=== PATIENT | male | born 1985 | race African-American/Black ===

== ENCOUNTER 2023-01-24 11:58 | Inpatient (IN) ==
[~2023-01-24 11:58] MED LIST: KETAMINE HCL INJ 100 MG/ML 5ML VIAL IV ONE; RAPID SEQUENCE INDUCTION BAG ONE; ROCURONIUM BROMIDE 10 MG/ML 5 ML VIAL IV ONE
[2023-01-24] MEDS ORDERED: STAT IV Infusion **Titration per Protocol STA (12:01)
[2023-01-24] MEDS ORDERED: PROPOFOL IV EMULSION 10 MG/ML 100 ML VIAL IV ONE (12:07)
[2023-01-24] MEDS ORDERED: SODIUM CHLORIDE 0.9% 1,000 ML IV SCH (12:15)
--- NOTE | 2023-01-24 12:16 | Emergency Department Note ---
Impression & Plan Hanging, Anoxic brain injury, Suicide attempt, Respiratory arrest, Cardiac arrest ED Provider Note NAME: DIAMANTE [id number] SIXTO AGE: 37 SEX: M : 1985 ARRIVES VIA: Ambulance INFORMANT: EMS personnel and the truck guard ED PROVIDER(S): Stephon Vincent DO CHIEF COMPLAINT: Attempted suicide HPI: The patient is a 37-year-old male who presented to the emergency department [facility]. The patient was last seen well at approximately 1040 this AM. At approximately 1044 this a.m. he was found hanging in his cell. Protocol was undertaken and the patient was first pepper sprayed. He was then evaluated by the staff. He was felt to have no pulse. The patient did receive CPR. 911 was called. The patient was evaluated by the prehospital personnel. They did get a pulse back on the patient. I did receive a prehospital notification about the patient. The patient was placed into a rigid cervical collar. The patient was posturing at 1 point. Initial pulse rate was bradycardic with hypotension. ROS: See above HPI for pertinent positives & negatives. A total of 10 systems reviewed and were otherwise negative. PAST MEDICAL HISTORY: See Below PAST SURGICAL HISTORY: See Below FAMILY HISTORY: See Below SOCIAL HISTORY: See Below HOME MEDICATIONS: See Below ALLERGIES: See Below VITALS: See Below PHYSICAL EXAMINATION: GENERAL: The patient is not awake and does not follow commands. He is moving his extremities and trying to pull at his IV lines. EYES: Eyes were closed. Evaluation of the eyes revealed a roving gaze [id number] with dilated pupils bilaterally. EARS, NOSE, MOUTH AND THROAT: The nose is without any evidence of any deformity. Oral airway was in place. There was a laceration on the inner lower lip. No active bleeding was noted. NECK: Rigid cervical collar was applied prior to arrival. There is no crepitus or stridor. RESPIRATORY: Diminished breath sounds are noted throughout. CARDIOVASCULAR: Regular rate and rhythm noted there no murmurs rubs or gallops normal S1 normal S2. GASTROINTESTINAL: The abdomen is soft. Abdomen is nontender. MUSCULOSKELETAL/EXTREMITIES: There is no evidence of gross deformity full range of motion is noted in the hips and shoulders. SKIN: Skin is diaphoretic and warm. No pedal edema was noted NEUROLOGIC: GCS of 7 MEDICAL DECISION MAKING: The patient is a 37-year-old male who [facility] a [facility] injury. The patient was obtunded upon arrival and had a GCS of 7. The patient was intubated immediately for airway protection. Cervical spine precautions were observed during the intubation. The patient was not awake or alert. He was not able to answer questions. He was further resuscitated in the emergency department using IV fluids. I discussed the patient's condition with the on-call [facility] hospitalist. I also discussed this case with the ICU physician. The patient will require further inpatient management to determine the degree of the injury. The patient was trying to pull at lines and tubes when he was reevaluated in the emergency department. He was given IV fluids. Triage Nursing notes reviewed. Prior medical records reviewed Vital Signs: reviewed and remarkable for no significant abnormalities Differential diagnosis: Fracture, dislocation, contusion, intra-abdominal, pneumothorax, intrathoracic, intracranial, neurologic, compartment syndrome, rhabdomyolysis, as well as other pathologies. ER treatment provided: See below Diagnostics interpreted by me: ECG: EKG was obtained in the emergency department. My interpretation is normal sinus rhythm at 79 bpm. There is no ectopy. There was no acute ST segment abnormalities noted. No previous tracing was available Cardiac Monitoring: An order was placed for continuous cardiac monitoring. The monitor shows a rate of 92 bpm with sinus rhythm. Laboratory studies: As stated above and show below. Imaging studies: See below. Radiographic imaging was reviewed by myself Consultation(s): I discussed this case with Dr Gregory who was amusement or recreation card checker for the [place] hospitalist group. I discussed this case with Dr Epperson who was amusement or recreation card checker for the ICU ED COURSE: Procedures: Femoral Central Venous Catheter Indication:respiratory arrest Catheter Type: triple lumen Location: right femoral vein Verbal consent was obtained after the risks and benefits were explained, including but not limited to intra-abdominal injury, vessel injury, bleeding, scarring, infection, pain, and bone/joint/nerve damage. At this time, the risks of the procedure are less than the risks of NOT performing the procedure. A time out was taken and the correct patient and site identified. The patient was placed in the supine position and the skin was prepped in the standard fashion with chlorhexidine and full sterile drapes applied. The proper landmarks were identified with ultrasound, anesthetized with 1% lidocaine without epinephrine, and the needle was inserted through the skin in the standard fashion. The needle was carefully advanced into blood vessel lumen with ultrasound guidance. The guidewire was placed uneventfully. The vessel is dilated and the catheter was placed. It was sutured into position. There was good blood return from all ports. The patient tolerated the procedure well and there were no complications. Critical Care: I have personally spent greater than 45 minutes of critical care time in the direct management of this patient. This includes bedside care, interpretation of diagnostic studies, and testing, discussion with consultants, patient, and family members, and other required patient management activities. This 45 minutes is in excess of all separately billable procedures. Past Med/Surg History Medical History (Updated 01/24/23 @ 17:20 by Stephon Vincent DO) Suicide attempt Nightmare disorder Depression Social History Smoking Status: Unknown if ever smoked Preferred Language: Czech Communication Ability: Unable Current Living Situation: Other Current Living Situation Comment: [facility] Allergies Allergies Allergy/AdvReac Type Severity Reaction Status Date / Time OC SPRAY CONTRINDICATION AdvReac Unknown Uncoded 01/24/23 14:21 Home Meds Home Medications Medication Instructions Recorded Confirmed Saul Peroxide 5% Lotion 1 applic topical DAILY 01/24/23 01/24/23 coal tar 2 % shampoo (Tarsum 1 applic topical DAILY 01/24/23 01/24/23 Professional) diphenhydramine HCl 50 mg capsule 100 mg PO HS 01/24/23 01/24/23 mirtazapine 45 mg tablet 45 mg PO HS 01/24/23 01/24/23 prazosin 1 mg capsule 3 mg PO HS 01/24/23 01/24/23 sertraline 100 mg tablet 100 mg PO HS 01/24/23 01/24/23 Results & Data (ED) Vital Signs Vital Signs - 24 hr 01/24/23 12:07 01/24/23 12:10 01/24/23 12:15 Temperature Temperature Source Pulse Rate 88 101 H Pulse Rate from SpO2 Sensor 82 100 H Respiratory Rate 12 13 Respiratory Effort / Characteristics Blood Pressure Blood Pressure Mean Pulse Oximetry 96 100 Oxygen Delivery Method Fraction of Inspired Oxygen Sepsis Recent Fever Within 48 Hours Sepsis New/Unexplained Change in Mental Status Sepsis Action Taken by Nursing End-Tidal CO2 42 50 01/24/23 12:19 01/24/23 12:20 01/24/23 12:24 Temperature Temperature Source Pulse Rate 76 78 79 Pulse Rate from SpO2 Sensor 79 79 Respiratory Rate 12 12 Respiratory Effort / Characteristics Mechanically Ventilated Blood Pressure 140/70 Blood Pressure Mean 93 Pulse Oximetry 100 100 100 Oxygen Delivery Method Mechanical Vent Fraction of Inspired Oxygen Sepsis Recent Fever Within 48 Hours No Sepsis New/Unexplained Change in Mental Status No Sepsis Action Taken by Nursing No Action Required End-Tidal CO2 45 44 01/24/23 12:32 01/24/23 12:48 01/24/23 12:49 Temperature Temperature Source Pulse Rate 96 H 73 Pulse Rate from SpO2 Sensor 72 Respiratory Rate 11 L Respiratory Effort / Characteristics Blood Pressure 118/65 Blood Pressure Mean 87 Pulse Oximetry 92 Oxygen Delivery Method Fraction of Inspired Oxygen Sepsis Recent Fever Within 48 Hours Sepsis New/Unexplained Change in Mental Status Sepsis Action Taken by Nursing End-Tidal CO2 42 01/24/23 12:50 01/24/23 12:50 01/24/23 12:54 Temperature Temperature Source Pulse Rate 76 79 Pulse Rate from SpO2 Sensor 76 Respiratory Rate 13 12 Respiratory Effort / Characteristics Blood Pressure 130/73 Blood Pressure Mean 85 Pulse Oximetry 94 93 Oxygen Delivery Method Fraction of Inspired Oxygen 100 Sepsis Recent Fever Within 48 Hours Sepsis New/Unexplained Change in Mental Status Sepsis Action Taken by Nursing End-Tidal CO2 42 43 01/24/23 12:55 01/24/23 13:00 01/24/23 13:00 Temperature Temperature Source Pulse Rate 71 Pulse Rate from SpO2 Sensor 70 Respiratory Rate 14 Respiratory Effort / Characteristics Blood Pressure 104/70 Blood Pressure Mean 77 Pulse Oximetry 94 96 Oxygen Delivery Method Mechanical Vent Fraction of Inspired Oxygen Sepsis Recent Fever Within 48 Hours Sepsis New/Unexplained Change in Mental Status Sepsis Action Taken by Nursing End-Tidal CO2 39 01/24/23 13:00 01/24/23 13:02 01/24/23 13:02 Temperature Temperature Source Pulse Rate 67 79 Pulse Rate from SpO2 Sensor 65 78 Respiratory Rate 10 L 17 Respiratory Effort / Characteristics Blood Pressure 106/73 Blood Pressure Mean 82 Pulse Oximetry 96 97 Oxygen Delivery Method Fraction of Inspired Oxygen Sepsis Recent Fever Within 48 Hours Sepsis New/Unexplained Change in Mental Status Sepsis Action Taken by Nursing End-Tidal CO2 41 41 01/24/23 13:05 01/24/23 13:05 01/24/23 13:10 Temperature Temperature Source Pulse Rate 74 78 Pulse Rate from SpO2 Sensor 73 77 Respiratory Rate 12 16 Respiratory Effort / Characteristics Blood Pressure 96/59 L Blood Pressure Mean 72 Pulse Oximetry 96 97 Oxygen Delivery Method Fraction of Inspired Oxygen Sepsis Recent Fever Within 48 Hours Sepsis New/Unexplained Change in Mental Status Sepsis Action Taken by Nursing End-Tidal CO2 41 38 01/24/23 13:10 01/24/23 13:11 01/24/23 13:15 Temperature 36.7 C Temperature Source Davis Cath ( Temp Sensing) Pulse Rate 84 Pulse Rate from SpO2 Sensor 82 Respiratory Rate 12 Respiratory Effort / Characteristics Blood Pressure 93/58 L Blood Pressure Mean 68 Pulse Oximetry 97 Oxygen Delivery Method Fraction of Inspired Oxygen Sepsis Recent Fever Within 48 Hours Sepsis New/Unexplained Change in Mental Status Sepsis Action Taken by Nursing End-Tidal CO2 40 01/24/23 13:19 01/24/23 13:19 01/24/23 13:20 Temperature Temperature Source Pulse Rate 80 73 Pulse Rate from SpO2 Sensor 77 71 Respiratory Rate 13 16 Respiratory Effort / Characteristics Blood Pressure 96/38 L Blood Pressure Mean 67 Pulse Oximetry 99 98 Oxygen Delivery Method Fraction of Inspired Oxygen Sepsis Recent Fever Within 48 Hours Sepsis New/Unexplained Change in Mental Status Sepsis Action Taken by Nursing End-Tidal CO2 40 40 01/24/23 13:25 01/24/23 13:25 01/24/23 13:30 Temperature Temperature Source Pulse Rate 88 58 L Pulse Rate from SpO2 Sensor 88 59 L Respiratory Rate 13 15 Respiratory Effort / Characteristics Blood Pressure 96/63 L Blood Pressure Mean 67 Pulse Oximetry 98 98 Oxygen Delivery Method Fraction of Inspired Oxygen Sepsis Recent Fever Within 48 Hours Sepsis New/Unexplained Change in Mental Status Sepsis Action Taken by Nursing End-Tidal CO2 50 40 01/24/23 13:30 01/24/23 13:35 01/24/23 13:35 Temperature Temperature Source Pulse Rate 63 Pulse Rate from SpO2 Sensor 63 Respiratory Rate 12 Respiratory Effort / Characteristics Blood Pressure 96/41 L 110/49 L Blood Pressure Mean 67 63 Pulse Oximetry 100 Oxygen Delivery Method Fraction of Inspired Oxygen Sepsis Recent Fever Within 48 Hours Sepsis New/Unexplained Change in Mental Status Sepsis Action Taken by Nursing End-Tidal CO2 41 01/24/23 13:40 01/24/23 13:45 01/24/23 13:50 Temperature Temperature Source Pulse Rate 70 49 L Pulse Rate from SpO2 Sensor 60 50 L Respiratory Rate 14 14 15 Respiratory Effort / Characteristics Blood Pressure 88/49 L 103/49 L Blood Pressure Mean 62 67 Pulse Oximetry 99 98 99 Oxygen Delivery Method Fraction of Inspired Oxygen Sepsis Recent Fever Within 48 Hours Sepsis New/Unexplained Change in Mental Status Sepsis Action Taken by Nursing End-Tidal CO2 40 39 39 01/24/23 13:50 01/24/23 13:55 01/24/23 13:55 Temperature Temperature Source Pulse Rate 49 L Pulse Rate from SpO2 Sensor 50 L Respiratory Rate 13 Respiratory Effort / Characteristics Blood Pressure 108/53 L 104/49 L Blood Pressure Mean 75 65 Pulse Oximetry 100 Oxygen Delivery Method Fraction of Inspired Oxygen Sepsis Recent Fever Within 48 Hours Sepsis New/Unexplained Change in Mental Status Sepsis Action Taken by Nursing End-Tidal CO2 39 01/24/23 14:00 01/24/23 14:00 01/24/23 14:05 Temperature Temperature Source Pulse Rate 47 L 45 L Pulse Rate from SpO2 Sensor 48 L 48 L Respiratory Rate 13 13 Respiratory Effort / Characteristics Blood Pressure 108/49 L Blood Pressure Mean 61 Pulse Oximetry 100 100 Oxygen Delivery Method Fraction of Inspired Oxygen Sepsis Recent Fever Within 48 Hours Sepsis New/Unexplained Change in Mental Status Sepsis Action Taken by Nursing End-Tidal CO2 38 38 01/24/23 14:05 01/24/23 14:10 01/24/23 14:15 Temperature Temperature Source Pulse Rate 47 L 47 L Pulse Rate from SpO2 Sensor 49 L 48 L Respiratory Rate 13 13 Respiratory Effort / Characteristics Blood Pressure 104/50 L 106/49 L 106/51 L Blood Pressure Mean 64 68 69 Pulse Oximetry 100 100 Oxygen Delivery Method Fraction of Inspired Oxygen Sepsis Recent Fever Within 48 Hours Sepsis New/Unexplained Change in Mental Status Sepsis Action Taken by Nursing End-Tidal CO2 38 39 01/24/23 14:20 01/24/23 14:20 01/24/23 14:25 Temperature Temperature Source Pulse Rate 83 Pulse Rate from SpO2 Sensor 84 Respiratory Rate 20 Respiratory Effort / Characteristics Blood Pressure 121/67 122/66 Blood Pressure Mean 100 93 Pulse Oximetry 100 Oxygen Delivery Method Fraction of Inspired Oxygen Sepsis Recent Fever Within 48 Hours Sepsis New/Unexplained Change in Mental Status Sepsis Action Taken by Nursing End-Tidal CO2 47 01/24/23 14:25 01/24/23 14:30 01/24/23 14:30 Temperature Temperature Source Pulse Rate 86 77 Pulse Rate from SpO2 Sensor 86 77 Respiratory Rate 15 17 Respiratory Effort / Characteristics Blood Pressure 123/70 Blood Pressure Mean 79 Pulse Oximetry 100 100 Oxygen Delivery Method Fraction of Inspired Oxygen Sepsis Recent Fever Within 48 Hours Sepsis New/Unexplained Change in Mental Status Sepsis Action Taken by Nursing End-Tidal CO2 41 39 01/24/23 14:35 01/24/23 14:35 01/24/23 14:40 Temperature Temperature Source Pulse Rate 79 75 Pulse Rate from SpO2 Sensor 80 75 Respiratory Rate 14 19 Respiratory Effort / Characteristics Blood Pressure 120/74 Blood Pressure Mean 90 Pulse Oximetry 100 100 Oxygen Delivery Method Fraction of Inspired Oxygen Sepsis Recent Fever Within 48 Hours Sepsis New/Unexplained Change in Mental Status Sepsis Action Taken by Nursing End-Tidal CO2 39 39 01/24/23 14:40 01/24/23 14:45 01/24/23 14:45 Temperature Temperature Source Pulse Rate 72 Pulse Rate from SpO2 Sensor 72 Respiratory Rate 17 Respiratory Effort / Characteristics Blood Pressure 119/65 117/66 Blood Pressure Mean 81 85 Pulse Oximetry 100 Oxygen Delivery Method Fraction of Inspired Oxygen Sepsis Recent Fever Within 48 Hours Sepsis New/Unexplained Change in Mental Status Sepsis Action Taken by Nursing End-Tidal CO2 38 01/24/23 14:50 01/24/23 14:50 Temperature Temperature Source Pulse Rate 70 Pulse Rate from SpO2 Sensor 71 Respiratory Rate 14 Respiratory Effort / Characteristics Blood Pressure 121/66 Blood Pressure Mean 83 Pulse Oximetry 100 Oxygen Delivery Method Fraction of Inspired Oxygen Sepsis Recent Fever Within 48 Hours Sepsis New/Unexplained Change in Mental Status Sepsis Action Taken by Nursing End-Tidal CO2 37 Home Medications Current Medication List: was personally reviewed by me Laboratory Data Attestation: I reviewed the patient's lab results. 01/24/23 12:09 01/24/23 12:09 Lab Results 01/24/23 01/24/23 01/24/23 Range/Units 12:09 12:13 12:57 WBC 5.19 (4.8-10.8) K/ul RBC 4.48 L (4.70-6.10) M/uL Hgb 13.4 L (14.0-18.0) g/dl POC Hgb 14.3 (14.0-18.0) g/dl Hct 40.8 L (42.0-52.0) % POC Hct 42 (42-52) % MCV 91.1 (80.0-100.0) fL MCH 29.9 (25.0-34.0) pg MCHC 32.8 (32.0-36.0) g/dL RDW Std Deviation 36.5 (36.4-46.3) fL RDW Coeff of Meliza 10.9 L (11.5-14.5) % Plt Count 270 (130-400) K/uL MPV 9.8 (9.4-12.4) fL Immature Gran % (Auto) 0.4 % Neut % (Auto) 65.9 % Lymph % (Auto) 25.6 % Haakon % (Auto) 7.1 % Eos % (Auto) 0.8 % Baso % (Auto) 0.2 % Neut # (Auto) 3.42 (1.40-6.50) K/uL Lymph # (Auto) 1.33 (1.20-3.40) K/uL Haakon # (Auto) 0.37 (0.11-0.59) K/uL Eos # (Auto) 0.04 (0.00-0.50) K/uL Baso # (Auto) 0.01 (0.00-0.20) K/uL Immature Gran # (Auto) 0.02 (0.01-0.20) K/uL PT 11.9 (9.0-12.0) Seconds INR 1.1 (0.9-1.1) APTT 21.3 (21.0-31.0) Seconds PTT Ratio 0.8 POC Sodium 142 (135-144) mmol/L Sodium 140 (136-145) mmol/L POC Potassium 4.5 (3.3-5.0) mmol/L Potassium 4.4 (3.5-5.1) mmol/L POC Chloride 104 (101-112) mmol/L Chloride 104 (98-107) mmol/L Carbon Dioxide 23 (21-32) mmol/L POC Total CO2 21 L (24-31) mmol/L Anion Gap 13 H (3-11) POC Anion Gap 23.0 (16-25) mmol/L POC BUN 17 (7-18) mg/dl BUN 18 (6-23) mg/dl Creatinine 1.27 (0.6-1.4) mg/dl POC Creatinine 1.2 (0.6-1.3) mg/dl Est Cr Clr Drug Dosing 103.0 ml/min Est GFR ( Amer) 83.1 ml/min Est GFR (Non-Af Amer) 71.7 ml/min BUN/Creatinine Ratio 14.2 (10-20) Glucose 115 H (70-99(Fasting)) mg/dl POC Glucose (other) 120 H (70-99) mg/dl Calcium 9.5 (8.6-10.3) mg/dl POC Ioniz Calcium Patti 1.18 (1.12-1.32) mmol/l Total Bilirubin 0.7 (0.2-1.0) mg/dl AST 25 (13-39) U/L ALT 22 (7-52) U/L Alkaline Phosphatase 59 (34-104) U/L Total Creatine Kinase 151 (30-223) U/L Troponin I High Sens 66.8 H* (0-20) pg/ml Total Protein 8.0 (6.0-8.3) gm/dl Albumin 4.7 (3.4-5.0) gm/dl Globulin 3.3 (2.5-4.0) gm/dl Albumin/Globulin Ratio 1.4 (0.9-2) Urine Color Dark Yellow Urine Appearance Clear (Clear) Urine pH 5.5 (4.5-7.5) Ur Specific [place] 1.024 (1.000-1.030) Urine Protein 2+ H (Negative) Urine Glucose (UA) Negative (Negative) Urine Ketones Negative (Negative) Urine Blood Negative (Negative) Urine Nitrite Negative (Negative) Urine Bilirubin Negative (Negative) Urine Urobilinogen Negative (Negative) Ur Leukocyte Esterase Negative (Negative) Urine WBC (Auto) 1-5 (0-5) /hpf Urine RBC (Auto) 0-4 (0-4) /hpf U Hyaline Cast (Auto) 10-30 H (0-5) /lpf U Epithel Cells (Auto) 10-20 H (0-5) /lpf Urine Bacteria (Auto) Negative (Negative) Urine Opiates Screen Neg (Neg) Ur Methadone, Qual Neg (Neg) Urine Barbiturates Neg (Neg) Ur Phencyclidine (PCP) Neg (Neg) U Amphetamin/Meth Scrn Neg (Neg) MDMA (Ecstasy) Screen Neg (Neg) U Benzodiazepines Scrn Neg (Neg) Ur Cocaine Metabolite Neg (Neg) U Marijuana (THC) Screen Neg (Neg) Ethyl Alcohol mg/dL < 10.0 (<10.0) mg/dl SARS-CoV-2, RNA, NAAT (NEGATIVE) 01/24/23 Range/Units 12:59 WBC (4.8-10.8) K/ul RBC (4.70-6.10) M/uL Hgb (14.0-18.0) g/dl POC Hgb (14.0-18.0) g/dl Hct (42.0-52.0) % POC Hct (42-52) % MCV (80.0-100.0) fL MCH (25.0-34.0) pg MCHC (32.0-36.0) g/dL RDW Std Deviation (36.4-46.3) fL RDW Coeff of Meliza (11.5-14.5) % Plt Count (130-400) K/uL MPV (9.4-12.4) fL Immature Gran % (Auto) % Neut % (Auto) % Lymph % (Auto) % Haakon % (Auto) % Eos % (Auto) % Baso % (Auto) % Neut # (Auto) (1.40-6.50) K/uL Lymph # (Auto) (1.20-3.40) K/uL Haakon # (Auto) (0.11-0.59) K/uL Eos # (Auto) (0.00-0.50) K/uL Baso # (Auto) (0.00-0.20) K/uL Immature Gran # (Auto) (0.01-0.20) K/uL PT (9.0-12.0) Seconds INR (0.9-1.1) APTT (21.0-31.0) Seconds PTT Ratio POC Sodium (135-144) mmol/L Sodium (136-145) mmol/L POC Potassium (3.3-5.0) mmol/L Potassium (3.5-5.1) mmol/L POC Chloride (101-112) mmol/L Chloride (98-107) mmol/L Carbon Dioxide (21-32) mmol/L POC Total CO2 (24-31) mmol/L Anion Gap (3-11) POC Anion Gap (16-25) mmol/L POC BUN (7-18) mg/dl BUN (6-23) mg/dl Creatinine (0.6-1.4) mg/dl POC Creatinine (0.6-1.3) mg/dl Est Cr Clr Drug Dosing ml/min Est GFR ( Amer) ml/min Est GFR (Non-Af Amer) ml/min BUN/Creatinine Ratio (10-20) Glucose (70-99(Fasting)) mg/dl POC Glucose (other) (70-99) mg/dl Calcium (8.6-10.3) mg/dl POC Ioniz Calcium Patti (1.12-1.32) mmol/l Total Bilirubin (0.2-1.0) mg/dl AST (13-39) U/L ALT (7-52) U/L Alkaline Phosphatase (34-104) U/L Total Creatine Kinase (30-223) U/L Troponin I High Sens (0-20) pg/ml Total Protein (6.0-8.3) gm/dl Albumin (3.4-5.0) gm/dl Globulin (2.5-4.0) gm/dl Albumin/Globulin Ratio (0.9-2) Urine Color Urine Appearance (Clear) Urine pH (4.5-7.5) Ur Specific [place] (1.000-1.030) Urine Protein (Negative) Urine Glucose (UA) (Negative) Urine Ketones (Negative) Urine Blood (Negative) Urine Nitrite (Negative) Urine Bilirubin (Negative) Urine Urobilinogen (Negative) Ur Leukocyte Esterase (Negative) Urine WBC (Auto) (0-5) /hpf Urine RBC (Auto) (0-4) /hpf U Hyaline Cast (Auto) (0-5) /lpf U Epithel Cells (Auto) (0-5) /lpf Urine Bacteria (Auto) (Negative) Urine Opiates Screen (Neg) Ur Methadone, Qual (Neg) Urine Barbiturates (Neg) Ur Phencyclidine (PCP) (Neg) U Amphetamin/Meth Scrn (Neg) MDMA (Ecstasy) Screen (Neg) U Benzodiazepines Scrn (Neg) Ur Cocaine Metabolite (Neg) U Marijuana (THC) Screen (Neg) Ethyl Alcohol mg/dL (<10.0) mg/dl SARS-CoV-2, RNA, NAAT NEGATIVE (NEGATIVE) Administered Medications Propofol (Diprivan) 1,000 mg in 100 mls @ 21.21 mls/hr IV .Q4H43M [facility]; Protocol Stop: 01/27/23 12:14 Last Titration: 01/24/23 14:29 Dose: 35 mcg/kg/min, 21.2 mls/hr Documented By: Titration: 01/24/23 13:13 Dose: 30 mcg/kg/min, 18.2 mls/hr Documented By: Titration: 01/24/23 12:45 Dose: 25 mcg/kg/min, 15.2 mls/hr Documented By: Admin: 01/24/23 12:28 Dose: 20 mcg/kg/min, 12.1 mls/hr Documented By: QUYEN Co-signed By: TAQUERIA Propofol (Propofol Bolus From Bag) 20 mg IV Q5M PRN PRN Reason: Sedation Stop: 01/27/23 12:00 Last Admin: 01/24/23 14:20 Dose: 20 mg Documented By: QUYEN Co-signed By: QGV Admin: 01/24/23 13:00 Dose: 20 mg Documented By: QUYEN Co-signed By: TAQUERIA Admin: 01/24/23 12:51 Dose: 20 mg Documented By: QUYEN Co-signed By: TAQUERIA Discontinued Medications Fentanyl Citrate (Fentanyl Citrate Pf 100 Mcg/2 Ml Vial) Confirm Administered Dose 100 mcg .ROUTE .STK-MED ONE Stop: 01/24/23 13:26 Last Admin: 01/24/23 13:51 Dose: Not Given Documented By: QUYEN Fentanyl Citrate (Fentanyl Citrate Pf 100 Mcg/2 Ml Vial) 50 mcg IV NOW ONE Stop: 01/24/23 13:31 Last Admin: 01/24/23 13:30 Dose: 50 mcg Documented By: QUYEN Fentanyl Citrate (Fentanyl Citrate Pf 100 Mcg/2 Ml Vial) 50 mcg IV NOW STA Stop: 01/24/23 13:50 Last Admin: 01/24/23 13:52 Dose: 50 mcg Documented By: QUYEN Sodium Chloride (Nss) 1,000 mls @ 999 mls/hr IV .Q1H1M ACROLYN Stop: 01/24/23 13:15 Last Infusion: 01/24/23 14:08 Dose: Infused Documented By: Admin: 01/24/23 12:58 Dose: 999 mls/hr Documented By: TAQUERIA Sodium Chloride (Nss) 1,000 mls @ 999 mls/hr IV .Q1H1M ONE Stop: 01/24/23 14:28 Last Infusion: 01/24/23 14:55 Dose: Infused Documented By: Admin: 01/24/23 13:53 Dose: 999 mls/hr Documented By: QUYEN Ioversol (Optiray 320 500ml) 114 ml IV ONCE ONE Stop: 01/24/23 12:54 Last Admin: 01/24/23 12:53 Dose: 114 ml Documented By: NARESH Midazolam HCl (Midazolam Hcl 1 Mg/Ml 2ml Vial) Confirm Administered Dose 2 mg .ROUTE .STK-MED ONE Stop: 01/24/23 13:06 Last Admin: 01/24/23 13:08 Dose: Not Given Documented By: TAQUERIA Midazolam HCl (Midazolam Hcl 1 Mg/Ml 2ml Vial) 2 mg IV NOW STA Stop: 01/24/23 13:09 Last Admin: 01/24/23 13:09 Dose: 2 mg Documented By: TAQUERIA Miscellaneous (Rapid Sequence Induction Bag) Confirm Administered Dose 1 each N/A .STK-MED ONE Stop: 01/24/23 11:53 Last Admin: 01/24/23 14:45 Dose: Not Given Documented By: QUYEN Propofol (Propofol Iv Emulsion 10 Mg/Ml 100 Ml Vial) Confirm Administered Dose 1,000 mg IV .STK-MED ONE Stop: 01/24/23 12:08 Last Admin: 01/24/23 12:59 Dose: Not Given Documented By: TAQUERIA Imaging Data Attestation: I personally reviewed and interpreted this imaging study as follows: My Impression: CT the brain was obtained in the emergency department. My interpretation is no intracranial hemorrhage or mass effect, final report below. CT of the chest was obtained in the emergency department. Endotracheal tube appears to be in place, there is no infiltrate, there is no free air, final report below. 1 view chest x-ray was obtained in the emergency department. My interpretation is appropriate placement of endotracheal tube, final report below. Radiologist's Impression: Head CTA 01/24/23 12:01 CT ANGIOGRAM OF THE BRAIN CLINICAL HISTORY: Trauma. Attempted hanging. COMPARISON STUDY: Unenhanced CT of the brain performed concurrently on 01/24/2023. TECHNIQUE: Following the IV administration of 114 cc of Optiray 320, CT angiogram of the brain was performed from the skull base to the vertex. Images are reviewed in the axial, sagittal, and coronal planes. 3-D MIPS images are created and assessed. IV contrast was administered without complication. A dose lowering technique was utilized adhering to the principles of ALARA. FINDINGS: Brain parenchyma: There is no evidence of hemorrhage, mass effect, or acute territorial ischemia noting angiographic phase technique. There is no evidence of enhancing mass lesion on the angiogram phase images. No extra-axial fluid collection is seen. Carcamo-white matter differentiation is preserved. Ventricles, sulci, and cisterns: Normal in configuration. CT angiogram of the brain: The [place] is developmentally complete. The internal carotid arteries are widely patent, as are the anterior and middle cerebral arteries. The vertebrobasilar system and posterior cerebral arteries are widely patent. The vertebral arteries are codominant. There is no aneurysm, high-grade stenosis, or focal vessel cutoff identified throughout the intracranial circulation. Dural sinuses: Clear as visualized. Orbits: The bony orbits are intact. The orbital contents are normal as visualized. Sinuses and mastoids: The visualized paranasal sinuses are clear. The mastoid air cells are well pneumatized. Calvarium: Unremarkable. IMPRESSION: 1. There is no evidence of hemorrhage, mass effect, or acute territorial ischemia noting angiographic phase technique. 2. Unremarkable CT angiogram of the brain. ACT 112: Negative or not required by law. Electronically signed by: Daniel Foster M.D. 01/24/2023 1:18 PM Neck CTA 01/24/23 12:01 NECK CTA HISTORY: trauma TECHNIQUE: Multiaxial CT images of the neck were performed following the intravenous administration of contrast to evaluate the major cervical vessels. 3D/MIP images were also obtained. Sagittal and coronal reformats were reviewed. All measurements were calculated based on NASCET criteria. A dose lowering technique was utilized adhering to the principles of ALARA. COMPARISON STUDY: None. FINDINGS: The proximal great vessels are widely patent. There is no significant stenosis, occlusion, or dissection identified within the bilateral common carotid, internal carotid, or vertebral arteries. Endotracheal tube terminates in the mid trachea. IMPRESSION: No significant stenosis, occlusion, or dissection identified within the carotid or vertebral arteries. ACT 112: Negative or not required by law. Electronically signed by: Marty Roca M.D. 01/24/2023 1:26 PM Abdomen/Pelvis CT 01/24/23 12:02 CT SCAN OF THE ABDOMEN AND PELVIS WITH IV CONTRAST CLINICAL HISTORY: Trauma. Attempted hanging. COMPARISON STUDY: No priors. TECHNIQUE: Following the IV administration of 114 cc of Optiray 320, CT scan of the abdomen and pelvis is performed from the lung bases to the proximal femora. Images are reviewed in the axial, sagittal, and coronal planes. IV contrast was administered without complication. A dose lowering technique was utilized adhering to the principles of ALARA. There is streak artifact from the arms which could not be elevated above the abdomen. FINDINGS: Lung bases: The heart is normal in size and without pericardial effusion. The lung bases are clear noting dependent atelectasis. Liver: The contrast-enhanced liver is normal in size, contour, and attenuation. There is no intrahepatic biliary ductal dilatation. The hepatic veins and portal veins are patent. Gallbladder: Unremarkable. Spleen: Normal in size and attenuation. Pancreas: Unremarkable. Adrenal glands: Unremarkable. Kidneys: The contrast enhanced kidneys are normal in size and without hydronephrosis. The kidneys enhance symmetrically. Abdominal vasculature: The abdominal aorta is normal in course and caliber. Bowel: There is no bowel obstruction. Moderate marked fecal retention is seen throughout the colon. The appendix is well-visualized and normal. Peritoneum: There is no intraperitoneal free air or abdominal ascites. There is a small fat-containing umbilical hernia. Lymphadenopathy: None. Pelvic viscera: The bladder is partially decompressed around a Davis catheter. Intraluminal gas is likely related to instrumentation. The prostate and seminal vesicles are normal as imaged. Skeletal structures: No lytic or blastic lesions are seen. IMPRESSION: 1. There is no evidence of solid organ injury in the abdomen or pelvis. 2. No acute infectious or inflammatory findings are seen. 3. Additional findings as above. ACT 112: Negative or not required by law. Electronically signed by: Daniel Foster M.D. 01/24/2023 1:[address] 01/24/23 12:02 CT SCAN OF THE CERVICAL SPINE CLINICAL HISTORY: Trauma. Attempted hanging. COMPARISON STUDY: No priors. TECHNIQUE: CT scan of the cervical spine is performed from the skull base to the upper thoracic spine. Images are reviewed in the axial, sagittal, and coronal planes. IV contrast was not administered for this examination. A dose lowering technique was utilized adhering to the principles of ALARA. CT DOSE: 3989.49 mGy.cm FINDINGS: Skeletal structures: The skeletal structures are well mineralized. There is no evidence of fracture or subluxation involving the cervical spine. Vertebral body height and alignment are maintained. The odontoid process and lateral masses are intact. The atlantoaxial articulation is preserved. The spinous processes appear intact. Intervertebral discs: The disc spaces are well maintained. Central canal: Widely patent. Soft tissues: The prevertebral and paraspinous soft tissues are within normal limits. Secretions are noted in the pharynx around the endotracheal tube. Calvarium: The visualized calvarium at the skull base appears intact. Brain parenchyma: Partially visualized brain parenchyma at the skull base is within normal limits. Sinuses and mastoids: The visualized paranasal sinuses are clear. The mastoid air cells are well pneumatized. Lung apices: An endotracheal tube is in place. Clear as visualized. IMPRESSION: There is no evidence of fracture or subluxation involving the cervical spine. ACT 112: Negative or not required by law. Electronically signed by: Daniel Foster M.D. 01/24/2023 1:[address] 01/24/23 12:[address] WITH CONTRAST HISTORY: Acute chest trauma with suicide attempt Trauma TECHNIQUE: Multiaxial CT images of the chest were performed following the IV administration of 114 cc of Optiray. A dose lowering technique was utilized adhering to the principles of ALARA. COMPARISON: Chest radiograph of same day FINDINGS: Endotracheal tube terminates 3.9 cm superior to the winifred. Unremarkable thyroid. The heart is normal. No pericardial effusion or lymphadenopathy. Mild dependent subsegmental bibasilar atelectasis. No pneumothorax, pleural effusion or pulmonary edema. No acute process of the imaged upper abdomen. Unremarkable soft tissues. No acute fracture. IMPRESSION: 1. Satisfactory positioning of the endotracheal tube. 2. No pneumothorax. 3. Mild bibasilar atelectasis. ACT 112: Negative or not required by law. Electronically signed by: Rupert Aguayo M.D. 01/24/2023 2:09 PM Chest X-Ray 01/24/23 12:02 SINGLE VIEW CHEST CLINICAL HISTORY: Trauma. Intubation. FINDINGS: An AP, portable, supine chest radiograph is correlated with chest CT performed earlier the same day 01/24/2023. An endotracheal tube is in place. The tip projects approximately 5 cm above the winifred. An enteric tube has been placed. The tip extends below the diaphragm over the stomach. The cardiomediastinal silhouette is unremarkable. The lungs and pleural spaces are clear. No pneumothorax is seen. The bony thorax is grossly intact. Excreted IV contrast is seen within the renal collecting systems. IMPRESSION: 1. Endotracheal tube and enteric tubes have been placed as above. 2. The lungs are clear. ACT 112: Negative or not required by law. Electronically signed by: Daniel Foster M.D. 01/24/2023 1:[address] 01/24/23 12:[address] DOSE: HISTORY: Trauma TECHNIQUE: Multiaxial CT images of the head were performed without the use of intravenous contrast. Automated exposure control was utilized for this study. A dose lowering technique was utilized adhering to the principles of ALARA. Comparison: None. Findings: The paranasal sinuses and mastoid air cells are clear. The calvarium and skull base are intact. The ventricles and sulci are within normal limits. There is no mass, hematoma, midline shift, or acute infarct. Posterior scalp swelling is noted. Impression: No acute intracranial abnormality. ACT 112: Negative or not required by law. Electronically signed by: Marty Roca M.D. 01/24/2023 1:22 PM Discharge Plan Visit Data Chief Complaint: Trauma Stated Complaint: TRAUMA ED Provider: Stephon Vincent Discharge Problem: Hanging, Anoxic brain injury, Suicide attempt, Respiratory arrest, Cardiac arrest Patient Disposition: Admitted As Inpatient Discharge Instructions Interventions: ED Discharge Assessment Last Done: 01/24/23 15:39 Discharge Problem: Hanging Qualifiers: Encounter type: initial encounter Qualified Code(s): T71.164A - Asphyxiation due to hanging, undetermined, initial encounter
[2023-01-24] MEDS: propofoL 1,000 MG/100 ML VIAL IV SCH ×4 (12:28→22:22)
[2023-01-24 12:34] LABS: Basophils # (auto) 0.01 K/uL (0.00-0.20); Basophils % (auto) 0.2 %; Eosinophils # (auto) 0.04 K/uL (0.00-0.50); Eosinophils % (auto) 0.8 %; Hematocrit (blood only) 40.8 % (42.0-52.0); Hemoglobin 13.4 g/dl (14.0-18.0); Immature Granulocytes # (auto) 0.02 K/uL (0.01-0.20); Immature Granulocytes % (auto) 0.4 %; Lymphocytes # (auto) 1.33 K/uL (1.20-3.40); Lymphocytes % (auto) 25.6 %; Mean Corpuscular Hemoglobin 29.9 pg (25.0-34.0); Mean Corpuscular Hgb Conc 32.8 g/dL (32.0-36.0); Mean Corpuscular Volume 91.1 fL (80.0-100.0); Mean Platelet Volume 9.8 fL (9.4-12.4); Monocytes # (auto) 0.37 K/uL (0.11-0.59); Monocytes % (auto) 7.1 %; Neutrophils # (auto) 3.42 K/uL (1.40-6.50); Neutrophils % (auto) 65.9 %; Platelet Count 270 K/uL (130-400); RDW Coefficient of Variation 10.9 % (11.5-14.5); RDW Standard Deviation 36.5 fL (36.4-46.3); Red Blood Count 4.48 M/uL (4.70-6.10); White Blood Count 5.19 K/ul (4.8-10.8)
[2023-01-24] MEDS: PROPOFOL BOLUS FROM BAG IV PRN ×4 (12:51→20:37)
[2023-01-24] MEDS ORDERED: OPTIRAY 320 500ml IV ONE (12:53)
[2023-01-24 12:56] LABS: Albumin Globulin Ratio 1.4 (0.9-2); Albumin Level 4.7 gm/dl (3.4-5.0); BUN Creatinine Ratio 14.2 (10-20); Bilirubin,Total 0.7 mg/dl (0.2-1.0); Calcium 9.5 mg/dl (8.6-10.3); Est GFR (African American) 83.1 ml/min; Est GFR (Non-African American) 71.7 ml/min; Globulin 3.3 gm/dl (2.5-4.0); Potassium 4.4 mmol/L (3.5-5.1)
[2023-01-24 13:04] LABS: INR 1.1 (0.9-1.1); Partial Thromboplastin Ratio 0.8; Partial Thromboplastin Time 21.3 Seconds (21.0-31.0); Prothrombin Time 11.9 Seconds (9.0-12.0)
[2023-01-24] MEDS ORDERED: MIDAZOLAM HCL 1 MG/ML 2ML VIAL ONE (13:05)
[2023-01-24 13:07] LABS: Troponin I High Sensitivity 66.8 pg/ml (0-20)
[2023-01-24] MEDS ORDERED: MIDAZOLAM HCL 1 MG/ML 2ML VIAL IV STA (13:08)
--- NOTE | 2023-01-24 13:13 | CT Scan Report ---
CT SCAN OF THE CERVICAL SPINE CLINICAL HISTORY: Trauma. Attempted hanging. COMPARISON STUDY: No priors. TECHNIQUE: CT scan of the cervical spine is performed from the skull base to the upper thoracic spine . Images are reviewed in the axial, sagittal, and coronal planes. IV contrast was not administered fo r this examination. A dose lowering technique was utilized adhering to the principles of ALARA. CT DOSE: 3989.49 mGy.cm FINDINGS: Skeletal structures: The skeletal structures are well mineralized. There is no evidence of fracture o r subluxation involving the cervical spine. Vertebral body height and alignment are maintained. The odontoid process and lateral masses are intact. The atlantoaxial articulation is preserved. The spino us processes appear intact. Intervertebral discs: The disc spaces are well maintained. Central canal: Widely patent. Soft tissues: The prevertebral and paraspinous soft tissues are within normal limits. Secretions are noted in the pharynx around the endotracheal tube. Calvarium: The visualized calvarium at the skull base appears intact. Brain parenchyma: Partially visualized brain parenchyma at the skull base is within normal limits. Sinuses and mastoids: The visualized paranasal sinuses are clear. The mastoid air cells are well pneu matized. Lung apices: An endotracheal tube is in place. Clear as visualized. IMPRESSION: There is no evidence of fracture or subluxation involving the cervical spine. ACT 112: Negative or not required by law. Electronically signed by: Daniel Foster M.D. 01/24/2023 1:12 PM
--- NOTE | 2023-01-24 13:19 | CT Scan Report ---
CT ANGIOGRAM OF THE BRAIN CLINICAL HISTORY: Trauma. Attempted hanging. COMPARISON STUDY: Unenhanced CT of the brain performed concurrently on 01/24/2023. TECHNIQUE: Following the IV administration of 114 cc of Optiray 320, CT angiogram of the brain was pe rformed from the skull base to the vertex. Images are reviewed in the axial, sagittal, and coronal pl anes. 3-D MIPS images are created and assessed. IV contrast was administered without complication. A dose lowering technique was utilized adhering to the principles of ALARA. FINDINGS: Brain parenchyma: There is no evidence of hemorrhage, mass effect, or acute territorial ischemia noti ng angiographic phase technique. There is no evidence of enhancing mass lesion on the angiogram phase images. No extra-axial fluid collection is seen. Carcamo-white matter differentiation is preserved. Ventricles, sulci, and cisterns: Normal in configuration. CT angiogram of the brain: The [place] is developmentally complete. The internal carotid art eries are widely patent, as are the anterior and middle cerebral arteries. The vertebrobasilar system and posterior cerebral arteries are widely patent. The vertebral arteries are codominant. There is n o aneurysm, high-grade stenosis, or focal vessel cutoff identified throughout the intracranial circul ation. Dural sinuses: Clear as visualized. Orbits: The bony orbits are intact. The orbital contents are normal as visualized. Sinuses and mastoids: The visualized paranasal sinuses are clear. The mastoid air cells are well pneu matized. Calvarium: Unremarkable. IMPRESSION: 1. There is no evidence of hemorrhage, mass effect, or acute territorial ischemia noting angiographic phase technique. 2. Unremarkable CT angiogram of the brain. ACT 112: Negative or not required by law. Electronically signed by: Daniel Foster M.D. 01/24/2023 1:18 PM
--- NOTE | 2023-01-24 13:23 | XRay Report ---
SINGLE VIEW CHEST CLINICAL HISTORY: Trauma. Intubation. FINDINGS: An AP, portable, supine chest radiograph is correlated with chest CT performed earlier the same day 01/24/2023. An endotracheal tube is in place. The tip projects approximately 5 cm above the c alli. An enteric tube has been placed. The tip extends below the diaphragm over the stomach. The car diomediastinal silhouette is unremarkable. The lungs and pleural spaces are clear. No pneumothorax is seen. The bony thorax is grossly intact. Excreted IV contrast is seen within the renal collecting sy stems. IMPRESSION: 1. Endotracheal tube and enteric tubes have been placed as above. 2. The lungs are clear. ACT 112: Negative or not required by law. Electronically signed by: Daniel Foster M.D. 01/24/2023 1:21 PM
[2023-01-24 13:24] LABS: Appearance Urine Clear (Clear); Bacteria Urine Automated Negative (Negative); Bilirubin Urine Negative (Negative); Blood Urine Negative (Negative); Color Urine Dark Yellow; Glucose Urine UA Negative (Negative); Ketones Urine Negative (Negative); Leukocyte Esterase Urine Negative (Negative); Nitrite Urine Negative (Negative); Protein Urine 2+ (Negative); RBC Urine Automated 0-4 /hpf (0-4); Specific Gravity Urine 1.024 (1.000-1.030); Urobilinogen Urine Negative (Negative); pH Urine 5.5 (4.5-7.5)
--- NOTE | 2023-01-24 13:24 | CT Scan Report ---
HEAD CT NONCONTRAST CT DOSE: HISTORY: Trauma TECHNIQUE: Multiaxial CT images of the head were performed without the use of intravenous contrast. A utomated exposure control was utilized for this study. A dose lowering technique was utilized adheri ng to the principles of ALARA. Comparison: None. Findings: The paranasal sinuses and mastoid air cells are clear. The calvarium and skull base are int act. The ventricles and sulci are within normal limits. There is no mass, hematoma, midline shift, or acute infarct. Posterior scalp swelling is noted. Impression: No acute intracranial abnormality. ACT 112: Negative or not required by law. Electronically signed by: Marty Roca M.D. 01/24/2023 1:22 PM
[2023-01-24] MEDS ORDERED: fentaNYL citrate PF 100 MCG/2 ML VIAL ONE (13:25)
--- NOTE | 2023-01-24 13:27 | CT Scan Report ---
NECK CTA HISTORY: trauma TECHNIQUE: Multiaxial CT images of the neck were performed following the intravenous administration o f contrast to evaluate the major cervical vessels. 3D/MIP images were also obtained. Sagittal and cor onal reformats were reviewed. All measurements were calculated based on NASCET criteria. A dose low ering technique was utilized adhering to the principles of ALARA. COMPARISON STUDY: None. FINDINGS: The proximal great vessels are widely patent. There is no significant stenosis, occlusion, or dissection identified within the bilateral common carotid, internal carotid, or vertebral arterie s. Endotracheal tube terminates in the mid trachea. IMPRESSION: No significant stenosis, occlusion, or dissection identified within the carotid or vertebral arteries . ACT 112: Negative or not required by law. Electronically signed by: Marty Roca M.D. 01/24/2023 1:26 PM
[2023-01-24] MEDS ORDERED: SODIUM CHLORIDE 0.9% 1,000 ML IV ONE (13:28)
[2023-01-24] MEDS ORDERED: fentaNYL citrate PF 100 MCG/2 ML VIAL IV ONE (13:30)
--- NOTE | 2023-01-24 13:32 | CT Scan Report ---
CT SCAN OF THE ABDOMEN AND PELVIS WITH IV CONTRAST CLINICAL HISTORY: Trauma. Attempted hanging. COMPARISON STUDY: No priors. TECHNIQUE: Following the IV administration of 114 cc of Optiray 320, CT scan of the abdomen and pelv is is performed from the lung bases to the proximal femora. Images are reviewed in the axial, sagitta l, and coronal planes. IV contrast was administered without complication. A dose lowering technique w as utilized adhering to the principles of ALARA. There is streak artifact from the arms which could n ot be elevated above the abdomen. FINDINGS: Lung bases: The heart is normal in size and without pericardial effusion. The lung bases are clear no ting dependent atelectasis. Liver: The contrast-enhanced liver is normal in size, contour, and attenuation. There is no intrahepa tic biliary ductal dilatation. The hepatic veins and portal veins are patent. Gallbladder: Unremarkable. Spleen: Normal in size and attenuation. Pancreas: Unremarkable. Adrenal glands: Unremarkable. Kidneys: The contrast enhanced kidneys are normal in size and without hydronephrosis. The kidneys enh ance symmetrically. Abdominal vasculature: The abdominal aorta is normal in course and caliber. Bowel: There is no bowel obstruction. Moderate marked fecal retention is seen throughout the colon. T he appendix is well-visualized and normal. Peritoneum: There is no intraperitoneal free air or abdominal ascites. There is a small fat-containin g umbilical hernia. Lymphadenopathy: None. Pelvic viscera: The bladder is partially decompressed around a Davis catheter. Intraluminal gas is li [place]arita related to instrumentation. The prostate and seminal vesicles are normal as imaged. Skeletal structures: No lytic or blastic lesions are seen. IMPRESSION: 1. There is no evidence of solid organ injury in the abdomen or pelvis. 2. No acute infectious or inflammatory findings are seen. 3. Additional findings as above. ACT 112: Negative or not required by law. Electronically signed by: Daniel Foster M.D. 01/24/2023 1:30 PM
[2023-01-24 13:39] LABS: Amphetamines+Metham, Urine Neg (Neg); Barbiturates, Urine Neg (Neg); Benzodiazepine, Urine Neg (Neg); Cocaine, Urine Neg (Neg); MDMA (Ecstacy), Urine Neg (Neg); Marijuana, Urine Neg (Neg); Methadone, Urine Neg (Neg); Opiate, Urine Neg (Neg); Phencyclidine, Urine Neg (Neg)
[2023-01-24] MEDS ORDERED: fentaNYL citrate PF 100 MCG/2 ML VIAL IV STA (13:49)
[2023-01-24 14:09] LABS: iSTAT Creatinine 1.2 mg/dl (0.6-1.3); iSTAT Hemoglobin 14.3 g/dl (14.0-18.0); iSTAT Ionized Calcium 1.18 mmol/l (1.12-1.32); iSTAT Potassium 4.5 mmol/L (3.3-5.0)
--- NOTE | 2023-01-24 14:11 | CT Scan Report ---
CHEST CT WITH CONTRAST HISTORY: Acute chest trauma with suicide attempt Trauma TECHNIQUE: Multiaxial CT images of the chest were performed following the IV administration of 114 cc of Optiray. A dose lowering technique was utilized adhering to the principles of ALARA. COMPARISON: Chest radiograph of same day FINDINGS: Endotracheal tube terminates 3.9 cm superior to the winifred. Unremarkable thyroid. The heart is normal. No pericardial effusion or lymphadenopathy. Mild dependent subsegmental bibasilar atelect asis. No pneumothorax, pleural effusion or pulmonary edema. No acute process of the imaged upper abdo men. Unremarkable soft tissues. No acute fracture. IMPRESSION: 1. Satisfactory positioning of the endotracheal tube. 2. No pneumothorax. 3. Mild bibasilar atelectasis. ACT 112: Negative or not required by law. Electronically signed by: Rupert Aguayo M.D. 01/24/2023 2:09 PM
--- NOTE | 2023-01-24 14:20 | History & Physical Report ---
Date of Service January 24, 2023 Assessment & Plan (1) Anoxic brain injury: Plan: Anoxic brain injury due to hanging, suicidal attempt Patient was found after approximately 5 minutes from last visit hanging in his cell. Has a history of major depressive disorder, night terrors per penitentiary record review. While he has not attempted suicide at their facility before, reportedly has a history of prior suicide attempts without additional details available per their records Pulseless when found, reportedly achieved ROSC after CPR was performed in the field and was bradycardic on arrival to ER, heart rate subsequently improved CThead: No acute finding. CTC-spine: No fracture or subluxation of the C- spine is seen. CT angios of the head/neck are without acute finding. CT of the chest, abdomen do not show any solid organ injury or other abnormality - Discussed with SCI Nurse. Pt was seen by psych 1 m onth ago. Denied SI/HI. On prazosin, remeron, sertraline for MDD and nightmares. Does have a history of suicide attempts, further details around this are not available. Next of kin/surrogate decision maker contact pending review by healthcare [facility] administrator at their facility, pending callback. Healthcare admin can be reached at [facility] [phone] extension [phone] Discussed with ICU. Okay to admit, vent in place. Hypothermia protocol not recommended. Echo pending, troponins trended. MRI at 24 hours for reevaluation. Neuro consulted. (2) Depression: Plan: With attempted suicide. ETT in place, guarded neurologic exam. Psych consultation deferred pending clinical improvement / ability to engage in consultation Mirtazapine, prazosin, sertraline held. (3) Nightmare disorder: Plan: Prazosin held (4) Suicide attempt: (5) Hanging: Plan DVT prophylaxis: Lovenox Diet: N.p.o. Disposition: ICU CODE STATUS: Full code. Discussed with [facility], information/phone numbers to follow-up with family/next of kin are pending per health windch[place] administrator. [facility] Health Admit # [phone] History of Present Illness Primary Care Provider: [facility] Neris Harris is a 37-year-old male inmate who presented to the emergency department after attempted suicide in the penitentiary by hanging, patient was found hanging in his cell about 5 minutes after his last observed normal. Patient was pulseless on present staff evaluation and underwent CPR. Patient had ROSC prehospital, on arrival to the ER was placed in a rigid cervical collar. Patient is intubated. Patient was bradycardic and hypotensive on ER evaluation. Remains bradycardic and hypotensive at time of hospitalist consultation History limited by ETT. Discussed with SCI nurse on-call at [facility]. Patient does have history of suicidal attempts, however none while at [facility] and additional history regarding these is not available. Has a history of MDD and nightmares for which he is on prazosin/Remeron/Benadryl/sertraline, at last psychiatry follow-up last month denied SI and this was reportedly well controlled. Patient was in level 5 housing, was found after approximately 5 minutes after SI by hanging. Per report was pepper sprayed to assess for malingering, subsequently about to be pulseless. EMS was contacted. AED was applied but did not deliver a shock. Patient with ROSC and bradycardia in route to ER. Subsequently intubated for respiratory protection Additional history is limited by ETT Allergies Allergy/AdvReac Type Severity Reaction Status Date / Time OC SPRAY CONTRINDICATION AdvReac Unknown Uncoded 01/24/23 14:21 Home Medications Medication Instructions Recorded Confirmed Type Saul Peroxide 5% Lotion 1 applic topical DAILY 01/24/23 01/24/23 History coal tar 2 % shampoo (Tarsum 1 applic topical DAILY 01/24/23 01/24/23 History Professional) diphenhydramine HCl 50 mg capsule 100 mg PO HS 01/24/23 01/24/23 History mirtazapine 45 mg tablet 45 mg PO HS 01/24/23 01/24/23 History prazosin 1 mg capsule 3 mg PO HS 01/24/23 01/24/23 History sertraline 100 mg tablet 100 mg PO HS 01/24/23 01/24/23 History Past Med/Surg History Medical History (Updated 01/24/23 @ 15:07 by Trever Danielle MD) Suicide attempt Nightmare disorder Depression Social History Smoking Status: Unknown if ever smoked Preferred Language: Romansh Physical Exam Physical Exam: General: Intubated. Pupils minimally reactive to light R>L. Does not track movements, no purposeful eye movement. On initial exams corneal reflex not present, left eye corneal reflex present on repeat exam. Pulm: Intubated. CTAB A&P. -wheezes, -rales, -rhonchi. Symmetrical chest rise. No increased work of breathing. No respiratory distress. Cardiac: RRR, -mrg. Radial pulses intact and symmetrical. Abdominal: Soft, nondistended, atraumatic Extremities: Strength/sensation testing limited by cognitive status. Resting with arms contracted and extended legs consistent with decorticate posturing. Results & Data Results & Data Vital Signs (Past 12 Hours) Vital Signs Temp Pulse Resp BP Pulse Ox O2 Del Method FiO2 01/24/23 14:05 104/50 L 01/24/23 14:05 45 L 13 100 01/24/23 14:00 108/49 L 01/24/23 14:00 47 L 13 100 01/24/23 13:55 104/49 L 01/24/23 13:55 49 L 13 100 01/24/23 13:50 108/53 L 01/24/23 13:50 49 L 15 99 01/24/23 13:45 70 14 103/49 L 98 01/24/23 13:40 14 88/49 L 99 01/24/23 13:35 110/49 L 01/24/23 13:35 63 12 100 01/24/23 13:30 96/41 L 01/24/23 13:30 58 L 15 98 01/24/23 13:25 96/63 L 01/24/23 13:25 88 13 98 01/24/23 13:20 73 16 98 01/24/23 13:19 96/38 L 01/24/23 13:19 80 13 99 01/24/23 13:15 84 12 97 01/24/23 13:11 36.7 C 01/24/23 13:10 93/58 L 01/24/23 13:10 78 16 97 01/24/23 13:05 74 12 96 01/24/23 13:05 96/59 L 01/24/23 13:02 106/73 01/24/23 13:02 79 17 97 01/24/23 13:00 67 10 L 96 01/24/23 13:00 104/70 01/24/23 13:00 96 Mechanical Vent 01/24/23 12:55 71 14 94 01/24/23 12:54 79 12 93 100 01/24/23 12:50 130/73 01/24/23 12:50 76 13 94 01/24/23 12:49 73 11 L 92 01/24/23 12:48 118/65 01/24/23 12:32 96 H 01/24/23 12:24 79 12 100 01/24/23 12:20 78 12 100 01/24/23 12:19 76 140/70 100 Mechanical Vent 01/24/23 12:15 101 H 13 100 01/24/23 12:10 12 01/24/23 12:07 88 96 PG Care Time/CCT Total # of Minutes Spent Total Time Spent with Patient: Total time spent is greater than 50% in coordination of care (as documented) at patient's floor/unit and/or counseling patient: Coding Level of Care Code 28798 INT INP/OBS CARE 3/75MIN Diagnoses Anoxic brain injury G93.1 Depression F32.A Active/Remission status: currently active Depression Type: major depressive disorder Nightmare disorder F51.5 Suicide attempt T14.91XA Hanging, undetermined whether accidentally or purposely inflicted, initial encounter T71.164A Encounter type: initial encounter (2) Depression Active/Remission status: currently active Depression Type: major depressive disorder (5) Hanging Encounter type: initial encounter Qualified Code(s): T71.164A - Asphyxiation due to hanging, undetermined, initial encounter
[2023-01-24] MEDS ORDERED: POLYETHYLENE (MIRALAX) 17 GM PACK PO PRN (14:41)
[2023-01-24] MEDS ORDERED: PANTOprazole 40 MG TAB PO SCH (15:30)
--- NOTE | 2023-01-24 15:47 | Critical Care Consultation ---
Date of Consultation January 24, 2023 Assessment & Plan (1) Anoxic brain injury: (2) Hanging: (3) Suicide attempt: Supervising Physician Co-Signing Physician Notes 37-year-old male with a history of major depressive disorder found hanging in nursing home roughly 4-5 minutes essentially presenting with anoxic brain injury and was intubated for airway protection in the ER. Currently being transferred to ICU for further management. Neurologic: Probable anoxic brain injury. Will obtain MRI brain and EEG. Consult neurology. Patient appears to have brainstem reflexes intact. Limit sedation to assess neurological response. Pulmonary: Minimal vent settings at this time. Intubated for airway protection. Mild atelectasis noted at the base of the chest imaging. Continue lung protective ventilation strategy. Obtain ABG. Cardiovascular: Patient initially presented with bradycardia. Hemodynamic stable at this present time. Troponin elevation likely due to demand ischemia. Echo pending. Gastrointestinal: NGT to low intermittent suction. LFTs unremarkable. Renal: Patient is status post 2 L of crystalloid boluses. Maintain adequate urine output and monitor closely via Davis catheter. Gentle hydration. Infectious disease: No concerns at this time. MRSA screen per protocol. Hematologic: No concerns. Endocrine: Maintain euglycemia. VTE prophylaxis: SCDs CODE STATUS: Full Family at bedside: None available at bedside Disposition: ICU I have personally spent 41 minutes of critical care time in the direct management of this patient. This is a life/limb threatening event. This includes time spent evaluating patient, direct bedside care, chart review, placing orders, interpretation of diagnostic studies, discussion with consultants, patient, and family members, as well as other required patient management activities. This time is exclusive of all separately billable procedures, and teaching time and separate from and in addition to any other critical care service time. Thank you for allowing us to participate in the care of this patient. History of Present Illness Reason for Consultation: Ventilated patient with probable anoxic brain injury History of Present Illness History is unobtainable from the patient due to comatose state and endotracheal tube. History obtained from chart review, discussion with the hospital service, ER provider and bedside nursing. Patient is a 37-year-old male who originally presented to the ER due to suicide attempt by hanging in the present. Reportedly he was found hanging for 4 to 5 minutes. He was pulseless and underwent CPR and achieved ROSC prior to hospital admission. He was placed in a rigid collar and rapidly intubated. He was found to be bradycardic and hypotensive. Initially the patient was minimally responsive but then developed pupillary reflex, gag reflex and cough. He underwent CT head, C-spine, abdomen/pelvis and chest without any significant findings. He is currently on propofol infusion due to possible myoclonic jerking activity and posturing activity. Labs are generally unremarkable on admission aside for elevated troponin of 66.8 and mild acidosis with a bicarb of 21 and anion gap of 13. Patient received 2 L bolus of NSS. [employer]al officers at bedside. No family available. Reportedly the patient has a history of major depressive disorder on Remeron, Benadryl, sertraline and prazosin. He follows with psychiatry in the nursing home system. Allergies Allergy/AdvReac Type Severity Reaction Status Date / Time OC SPRAY CONTRINDICATION AdvReac Unknown Uncoded 01/24/23 14:21 Home Medications Medication Instructions Recorded Confirmed Type Saul Peroxide 5% Lotion 1 applic topical DAILY 01/24/23 01/24/23 History coal tar 2 % shampoo (Tarsum 1 applic topical DAILY 01/24/23 01/24/23 History Professional) diphenhydramine HCl 50 mg capsule 100 mg PO HS 01/24/23 01/24/23 History mirtazapine 45 mg tablet 45 mg PO HS 01/24/23 01/24/23 History prazosin 1 mg capsule 3 mg PO HS 01/24/23 01/24/23 History sertraline 100 mg tablet 100 mg PO HS 01/24/23 01/24/23 History Patient History Medical History (Updated 01/24/23 @ 15:07 by Trever Danielle MD) Suicide attempt Nightmare disorder Depression Social History Smoking Status: Unknown if ever smoked Preferred Language: Greek Review of Systems Review of Systems: All systems reviewed & are unremarkable except as noted in HPI & below Physical Exam Physical Exam: Constitutional: Patient appears to be of their stated age. Patient is in no apparent distress. Patient is well-developed. Eyes: Pupils are equal round and reactive to light. Conjunctivae are normal. Anicteric sclera. Ears nose, mouth and throat: Endotracheal tube in place. Neck: Trachea is midline. Visual inspection is normal. C-collar in place. Respiratory: Clear to auscultation bilaterally. No use of accessory muscles. No significant clubbing noted. Cardiovascular: Regular rate and rhythm. No murmurs. No edema. Gastrointestinal: Normal bowel sounds, soft, nontender and nondistended. No hepatosplenomegaly noted. Musculoskeletal: No cyanosis. Patient is able to move all extremities. Strength is 5 out of 5 in the upper and lower extremities. Skin: No rashes, warm dry and intact. Neurologic: Gag reflex present. Pupillary reflex present. Patient does withdraw to painful stimuli. Psychiatric: Unobtainable. Results & Data Results & Data Vital Signs (Past 12 Hours) Vital Signs Temp Pulse Resp BP Pulse Ox O2 Del Method FiO2 01/24/23 14:56 69 15 100 01/24/23 14:56 79 16 94 100 01/24/23 14:50 121/66 01/24/23 14:50 70 14 100 01/24/23 14:45 117/66 01/24/23 14:45 72 17 100 01/24/23 14:40 119/65 01/24/23 14:40 75 19 100 01/24/23 14:35 120/74 01/24/23 14:35 79 14 100 01/24/23 14:30 123/70 01/24/23 14:30 77 17 100 01/24/23 14:25 86 15 100 01/24/23 14:25 122/66 01/24/23 14:20 121/67 01/24/23 14:20 83 20 100 01/24/23 14:15 47 L 13 106/51 L 100 01/24/23 14:10 47 L 13 106/49 L 100 01/24/23 14:05 104/50 L 01/24/23 14:05 45 L 13 100 01/24/23 14:00 108/49 L 01/24/23 14:00 47 L 13 100 01/24/23 13:55 104/49 L 01/24/23 13:55 49 L 13 100 01/24/23 13:50 108/53 L 01/24/23 13:50 49 L 15 99 01/24/23 13:45 70 14 103/49 L 98 01/24/23 13:40 14 88/49 L 99 01/24/23 13:35 110/49 L 01/24/23 13:35 63 12 100 01/24/23 13:30 96/41 L 01/24/23 13:30 58 L 15 98 01/24/23 13:25 96/63 L 01/24/23 13:25 88 13 98 01/24/23 13:20 73 16 98 01/24/23 13:19 96/38 L 01/24/23 13:19 80 13 99 01/24/23 13:15 84 12 97 01/24/23 13:11 36.7 C 01/24/23 13:10 93/58 L 01/24/23 13:10 78 16 97 01/24/23 13:05 74 12 96 01/24/23 13:05 96/59 L 01/24/23 13:02 106/73 01/24/23 13:02 79 17 97 01/24/23 13:00 67 10 L 96 01/24/23 13:00 104/70 01/24/23 13:00 96 Mechanical Vent 01/24/23 12:55 71 14 94 01/24/23 12:54 79 12 93 100 01/24/23 12:50 130/73 01/24/23 12:50 76 13 94 01/24/23 12:49 73 11 L 92 01/24/23 12:48 118/65 01/24/23 12:32 96 H 01/24/23 12:24 79 12 100 01/24/23 12:20 78 12 100 01/24/23 12:19 76 140/70 100 Mechanical Vent 01/24/23 12:15 101 H 13 100 01/24/23 12:10 12 01/24/23 12:07 88 96 Coding Level of Care Code 51239 IN/OBS CONSULT LVL 4,60M Diagnoses Anoxic brain injury G93.1 Hanging, undetermined whether accidentally or purposely inflicted, initial encounter T71.164A Encounter type: initial encounter Suicide attempt T14.91XA Time Spent (min) 41 (2) Hanging Encounter type: initial encounter Qualified Code(s): T71.164A - Asphyxiation due to hanging, undetermined, initial encounter
--- NOTE | 2023-01-24 16:11 | Electrocardiogram Report ---
Test Reason : Blood Pressure : / mmHG Vent. Rate : 079 BPM Atrial Rate : 079 BPM P-R Int : 168 ms QRS Dur : 098 ms QT Int : 378 ms P-R-T Axes : 078 076 065 degrees QTc Int : 433 ms Normal sinus rhythm Incomplete right bundle branch block Borderline ECG No previous ECGs available Confirmed by Stephon Fernandes ([id number]) on 01/24/2023 4:11:11 PM Referred By: [facility] Confirmed By:Stephon Fernandes
[2023-01-24] MEDS ORDERED: ICU Protocol for HYPERglycemia SCH (16:30)
[2023-01-24] MEDS ORDERED: INFLUENZA VIRUS QUADRIVALENT VACCINE (IIV4) 0.5 ML SYR IM ONE (16:38)
[2023-01-24 16:45] LABS: iSTAT Allen Test Pass; iSTAT Art Bld Gas pCO2 Correct 40 mmHg (35-46); iSTAT Art Bld Gas pH Corrected 7.355 (7.35-7.45); iSTAT Arterial Blood Gas HCO3 22 meg/L (19-24); iSTAT Arterial Blood Gas pCO2 39 mmHg (35-46); iSTAT Arterial Blood Gas pH 7.37 (7.35-7.45); iSTAT Arterial Blood Gas pO2 112 mmHg (80-95); iSTAT Arterial Blood Gas pO2 C 117; iSTAT Carbon Dioxide 23 mmol/L (24-31); iSTAT FiO2 40 %; iSTAT Hematocrit 36 % (42-52); iSTAT Hemoglobin 12.2 g/dl (14.0-18.0); iSTAT Potassium 4.4 mmol/L (3.3-5.0); iSTAT Site R Radial; iSTAT Sodium 138 mmol/L (135-144)
--- NOTE | 2023-01-24 16:46 | XRay Report ---
XR orbits for MRI HISTORY: 37 years-old Male Screening for foreign body for MRI COMPARISON: Head CT of same day TECHNIQUE: 3 views of the orbits FINDINGS: Exam is limited secondary to positioning. No opaque foreign body of the orbits identified. No acute f acial bone fracture is seen. IMPRESSION: No opaque foreign body of the orbits identified. ACT 112: Negative or not required by law. The above report was generated using voice recognition software. It may contain grammatical, syntax o r spelling errors. Electronically signed by: Rupert Aguayo M.D. 01/24/2023 4:45 PM
[2023-01-24] MEDS ORDERED: PANTOprazole 40 MG in SYRINGE 0 ML IV SCH (17:30)
[2023-01-24] MEDS ORDERED: Nursing to Pharmacy Communication SCH (17:30)
[2023-01-24] MEDS: LACTATED RINGER'S 1,000 ML IV SCH (17:38)
[2023-01-24] MEDS: ICU Protocol for HYPERglycemia SCH ×2 (17:38→22:36)
[2023-01-24] MEDS: ACETAMINOPHEN SUSP 325 MG/10.15 ML UDC PEG PRN ×2 (17:41→23:42)
[2023-01-24] MEDS: DOCUSATE SODIUM SYRUP 100 MG/10 ML UDC PEG SCH (19:22)
[2023-01-24] MEDS ORDERED: DOCUSATE SODIUM 100 MG CAP PO SCH (21:00)
[2023-01-24] MEDS ORDERED: SENNOSIDES 8.8 MG/5 ML UDC PEG SCH (21:00)
[2023-01-24] MEDS ORDERED: SENNA 8.6 MG TAB PO SCH (21:00)
--- NOTE | 2023-01-24 23:39 | Magnetic Resonance Report ---
Exam(s): MRI HEAD Without Contrast EXAM: MR Head Without Intravenous Contrast CLINICAL HISTORY: Reason for exam: anoxic brain injury. TECHNIQUE: Magnetic resonance images of the head/brain without intravenous contrast in multiple planes. COMPARISON: Comparison made to prior head CT from January 24, 2023. FINDINGS: Brain: Unremarkable. No mass. No hemorrhage. No acute infarct. The flow voids at the base of the brain are intact. Ventricles: Unremarkable. No ventriculomegaly. Bones/joints: Unremarkable. Sinuses: Chronic ethmoid sinusitis. No acute sinusitis. Mastoid air cells: Unremarkable as visualized. No mastoid effusion. Orbits: Unremarkable as visualized. IMPRESSION: No evidence of acute intracranial pathology. Electronically signed by: Vaen Woodward MD 01/24/23 23:39 PM
[2023-01-25] MEDS: propofoL 1,000 MG/100 ML VIAL IV SCH ×3 (01:44→08:22)
[2023-01-25] MEDS: PROPOFOL BOLUS FROM BAG IV PRN (03:07)
[2023-01-25 05:05] LABS: Basophils # (auto) 0.01 K/uL (0.00-0.20); Basophils % (auto) 0.2 %; Eosinophils # (auto) 0.02 K/uL (0.00-0.50); Eosinophils % (auto) 0.3 %; Hematocrit (blood only) 34.4 % (42.0-52.0); Hemoglobin 11.2 g/dl (14.0-18.0); Immature Granulocytes # (auto) 0.01 K/uL (0.01-0.20); Immature Granulocytes % (auto) 0.2 %; Lymphocytes # (auto) 0.88 K/uL (1.20-3.40); Lymphocytes % (auto) 15.1 %; Mean Corpuscular Hemoglobin 29.5 pg (25.0-34.0); Mean Corpuscular Hgb Conc 32.6 g/dL (32.0-36.0); Mean Corpuscular Volume 90.5 fL (80.0-100.0); Mean Platelet Volume 10.2 fL (9.4-12.4); Monocytes # (auto) 0.63 K/uL (0.11-0.59); Monocytes % (auto) 10.8 %; Neutrophils # (auto) 4.26 K/uL (1.40-6.50); Neutrophils % (auto) 73.4 %; Platelet Count 141 K/uL (130-400); RDW Coefficient of Variation 10.9 % (11.5-14.5); RDW Standard Deviation 36.6 fL (36.4-46.3); White Blood Count 5.81 K/ul (4.8-10.8)
[2023-01-25 05:09] LABS: iSTAT Allen Test Pass; iSTAT Art Bld Gas pCO2 Correct 39 mmHg (35-46); iSTAT Art Bld Gas pH Corrected 7.442 (7.35-7.45); iSTAT Arterial Blood Gas HCO3 27 meg/L (19-24); iSTAT Arterial Blood Gas pCO2 40 mmHg (35-46); iSTAT Arterial Blood Gas pH 7.44 (7.35-7.45); iSTAT Arterial Blood Gas pO2 133 mmHg (80-95); iSTAT Arterial Blood Gas pO2 C 131; iSTAT Carbon Dioxide 28 mmol/L (24-31); iSTAT FiO2 30 %; iSTAT Hematocrit 32 % (42-52); iSTAT Hemoglobin 10.9 g/dl (14.0-18.0); iSTAT Potassium 3.7 mmol/L (3.3-5.0); iSTAT Site R Radial; iSTAT Sodium 139 mmol/L (135-144)
[2023-01-25 05:21] LABS: Calcium 9.3 mg/dl (8.6-10.3); Creatinine Clr Calc Pharmacy 121.1 ml/min; Est GFR (African American) 101.1 ml/min; Est GFR (Non-African American) 87.2 ml/min; Magnesium 1.9 mg/dl (1.7-2.4); Phosphorus 3.8 mg/dl (2.5-4.9); Potassium 3.8 mmol/L (3.5-5.1)
[2023-01-25] MEDS ORDERED: MAGNESIUM SULFATE / D5W 1 GM/100 ML BAG IV ONE (06:00)
[2023-01-25] MEDS: POTASSIUM CHLORIDE / WTR 10 MEQ/100 ML PLCT IV SCH ×2 (06:19→07:35)
[2023-01-25] MEDS: LACTATED RINGER'S 1,000 ML IV SCH (06:20)
--- NOTE | 2023-01-25 07:21 | XRay Report ---
XR chest 1V portable HISTORY: 37 years-old Male Resp failure acute respiratory failure COMPARISON: 01/24/2023 TECHNIQUE: AP view of the chest FINDINGS: Endotracheal tube overlies the midline, 4.5 cm superior to the winifred. Enteric tube distal tip projec ts over the gastric body. Cardiac silhouette is enlarged. The lungs are generally clear with mild rig ht basilar atelectasis. No pneumothorax or pleural effusion. IMPRESSION: 1. Endotracheal and enteric tube positioning as above. 2. Mild right basilar atelectasis. ACT 112: Negative or not required by law. The above report was generated using voice recognition software. It may contain grammatical, syntax o r spelling errors. Electronically signed by: Rupert Aguayo M.D. 01/25/2023 7:19 AM
[2023-01-25] MEDS: ICU Protocol for HYPERglycemia SCH ×4 (07:28→20:20)
--- NOTE | 2023-01-25 07:51 | Neurology Consultation ---
Date of Consultation January 25, 2023 Assessment & Plan (1) Anoxic brain injury: (2) Cardiac arrest: (3) Respiratory arrest: (4) Depression: (5) Hanging: Plan This patient had a global anoxic brain injury from hanging attempt January 24. He had global hypoxia and ischemia for likely several minutes (maximum is difficult to ascertain but maybe 7-10 minutes). He had a cardiopulmonary arrest as a result of this but was resuscitated. Currently he is somewhat obtunded but can follow some simple one-step commands with his eyes. He has no focal findings but decreased tone in the limbs. He is withdrawing to pain in the legs greater than arms. Currently, by this somewhat limited exam, there are no signs of spinal cord injury (although it is very early yet). CT scan of the cervical spine and MRI of the brain were unremarkable for any acute abnormalities. Recommendations: 1. Hopefully, he can be extubated and we can reassess his neurologic examination then 2. There is no indication for an EEG at this time 3. I will follow Overall, I spent a total of 60 minutes with this case including review of records, review of MRI films, direct evaluation the patient at bedside, and discussion of the case with the patient and RN at bedside and Dr. Epperson, including differential diagnosis and treatment options History of Present Illness Reason for Consultation: Patient is a 37-year-old, who I was asked to see at the request of Dr. Epperson, for neurologic consultation regarding suicide attempt and decreased responsiveness Requesting Physician: Dr. Epperson Attending Physician: Josue Forde MD History of Present Illness This patient is an inmate at [facility] and was on mirtazapine and sertraline presumably for depression. He is also on prazosin for hypertension. Apparently, around 1040 on January 24 he was well. He was found at 10:44 a.m. hanging and it took quite a few minutes to return his pulse. He received CPR. He arrived to the emergency room on January 24 at 12:07 p.m. with a blood pressure 140/70, pulse rate in the 80s and O2 saturation 96%. He had a GCS of 7 and was posturing in the ER moving his extremities some. He was not awake and eyes were roving. He had some dilated pupils. CBC and Chem profile were largely unremarkable. Troponin was elevated. Urinalysis was unremarkable. CT scan of the head, CT angiography of the head and of the neck, and chest x-ray were all unremarkable. CT scan of the cervical spine showed no fractures and CT scans of the chest abdomen and pelvis were largely unremarkable. MRI of the brain showed no acute changes and again was unremarkable. I reviewed these films. The patient has had no seizure activity since admission and is intubated on propofol currently. CBC shows some mild anemia Chem profile was unremarkable. CK was 151. Allergies Allergy/AdvReac Type Severity Reaction Status Date / Time OC SPRAY CONTRINDICATION AdvReac Unknown Uncoded 01/24/23 14:21 Home Medications Medication Instructions Recorded Confirmed Type Saul Peroxide 5% Lotion 1 applic topical DAILY 01/24/23 01/24/23 History coal tar 2 % shampoo (Tarsum 1 applic topical DAILY 01/24/23 01/24/23 History Professional) diphenhydramine HCl 50 mg capsule 100 mg PO HS 01/24/23 01/24/23 History mirtazapine 45 mg tablet 45 mg PO HS 01/24/23 01/24/23 History prazosin 1 mg capsule 3 mg PO HS 01/24/23 01/24/23 History sertraline 100 mg tablet 100 mg PO HS 01/24/23 01/24/23 History Patient History Medical History (Updated 01/24/23 @ 17:20 by Stephon Vincent DO) Suicide attempt Nightmare disorder Depression Social History Smoking Status: Unknown if ever smoked Preferred Language: Setswana Communication Ability: Unable Current Living Situation: Other Current Living Situation Comment: [facility] Review of Systems Review of Systems: Unobtainable due to cognitive status and Unobtainable due to endotracheal tube Exam (Neuro) Physical Exam: Blood pressure was 135/22 and pulse was 48 and regular. Respiratory rate was 12 and he was ventilator dependent. Temperature was 37.2 and O2 saturation was 100%. 5 minutes after propofol was discontinue d the patient would open his eyes to voice and make eye contact. I told him to look towards me and he did then went around to the other side of the bed any look the other way. Therefore extraocular muscles seemed intact horizontally without nystagmus. Pupils were 4 mm bilaterally reactive to light. He had spontaneous cough and gag. Neck is difficult to assess because he is intubated. He would not voluntarily move his mouth/smile. I did not see any spontaneous movements of the limbs and he had decreased tone in all 4 limbs. The patient with true quickly to relatively light pain in the lower extremities. He had downgoing toes to plantar stimulation bilaterally. He did move his upper extremities slightly to deep pain including grimace but they did not move as well as the legs. Reflexes were 1/4 the quadriceps and Achilles tendons bilaterally and absent in the upper extremities bilaterally. Results & Data Vital Signs (Past 12 Hours) Vital Signs Temp Pulse Resp BP Pulse Ox O2 Del Method FiO2 01/25/23 07:41 48 L 12 100 30 01/25/23 06:00 36.7 C 51 L 12 119/62 100 Mechanical Vent 01/25/23 05:00 36.7 C 49 L 12 123/65 100 Mechanical Vent 01/25/23 04:15 116/62 01/25/23 04:15 48 L 12 100 01/25/23 04:00 36.7 C 51 L 12 115/60 100 Mechanical Vent 01/25/23 04:00 30 01/25/23 03:22 51 L 12 100 30 01/25/23 03:00 36.9 C 77 17 151/77 H 100 Mechanical Vent 01/25/23 02:00 36.9 C 52 L 12 112/57 L 100 01/25/23 01:17 58 L 01/25/23 01:00 37 C 58 L 12 120/54 L 100 Mechanical Vent 01/25/23 00:00 37.6 C H 59 L 13 116/57 L 100 Mechanical Vent 01/25/23 00:00 30 01/24/23 23:17 38.0 C H 59 L 12 107/56 L 99 Mechanical Vent 01/24/23 22:35 62 13 100 30 01/24/23 22:30 38.3 C H 68 15 122/63 100 Mechanical Vent 01/24/23 21:00 38.5 C H 75 17 112/58 L 97 Mechanical Vent 01/24/23 20:21 72 15 99 30 01/24/23 20:01 38.4 C H 77 19 122/57 L 99 Mechanical Vent 01/24/23 19:51 Mechanical Vent 30 PG Care Time/CCT Total # of Minutes Spent Total Time Spent with Patient: Total time spent is greater than 50% in coordination of care (as documented) at patient's floor/unit and/or counseling patient: Coding Level of Care Code 55020 IN/OBS CONSULT LVL 4,60M Diagnoses Anoxic brain injury G93.1 Cardiac arrest I46.9 Respiratory arrest R09.2 Depression F32.A Depression Type: major depressive disorder Active/Remission status: currently active Hanging, undetermined whether accidentally or purposely inflicted, initial encounter T71.164A Encounter type: initial encounter Time Spent (min) 60 (4) Depression Depression Type: major depressive disorder Active/Remission status: currently active (5) Hanging Encounter type: initial encounter Qualified Code(s): T71.164A - Asphyxiation due to hanging, undetermined, initial encounter
[2023-01-25] MEDS: DOCUSATE SODIUM SYRUP 100 MG/10 ML UDC PEG SCH (08:19)
[2023-01-25] MEDS ORDERED: ACETAMINOPHEN 1,000 MG/100 ML VIAL IV PRN (08:43)
--- NOTE | 2023-01-25 08:43 | Critical Care Progress Note ---
Date of Service January 25, 2023 Assessment & Plan (1) Hanging: (2) Anoxic brain injury: (3) Suicide attempt: (4) Fever: Plan 37-year-old male with a history of major depressive disorder found hanging in [facility] roughly 4-5 minutes essentially presenting with anoxic brain injury and was intubated for airway protection in the ER. Currently being transferred to ICU for further management. Neurologic: Patient reportedly underwent CPR and had ROSC in [facility]. Probable anoxic brain injury. MRI brain negative for acute intracranial pathology. EEG pending. Appreciate neurology input. Patient appears to have brainstem reflexes intact. Limit sedation to assess neurological response. Patient with likely central neuro fevers. CT C-spine negative for acute fractures. CT chest with mild bibasilar atelectasis on admission. Neck CTA with no acute pathology. Pulmonary: Minimal vent settings at this time. Intubated for airway protection. Mild atelectasis noted at the base of the chest imaging. Continue lung protective ventilation strategy. ABG is unremarkable. Currently on SBT. Will extubate if he starts following commands. Cardiovascular: Patient initially presented with bradycardia. Hemodynamic stable at this present time. Troponin elevation likely due to demand ischemia. Echo pending. Gastrointestinal: Start tube feeds if unable to extubate. LFTs unremarkable. Renal: No significant issues at present. Replace electrolytes per ICU protocol. Davis intact. Gentle hydration. Infectious disease: No concerns at this time. MRSA screen per protocol. Patient with mild fevers. Obtain blood cultures, sputum cultures and urine cultures. Obtain pr ocalcitonin. Hematologic: Mild anemia likely hemodilutional. Platelet count unremarkable. Endocrine: Maintain euglycemia. VTE prophylaxis: SCDs CODE STATUS: Full Family at bedside: None available at bedside. Patient incarcerated. Disposition: ICU I have personally spent 38 minutes of critical care time in the direct management of this patient. This is a life/limb threatening event. This includes time spent evaluating patient, direct bedside care, chart review, placing orders, interpretation of diagnostic studies, discussion with consultants, patient, and family members, as well as other required patient management activities. This time is exclusive of all separately billable procedures, and teaching time and separate from and in addition to any other critical care service time. Thank you for allowing us to participate in the care of this patient. Admission and Anticipated Discharge Date Admission Date: January 24, 2023 Subjective Patient seen and examined. He opens his eyes spontaneously and occasionally moves his feet. He does not follow any simple commands. I have placed him on a spontaneous breathing trial and he is doing well on trials of present. He has had low-grade fevers overnight and this morning. No hemodynamic issues aside for bradycardia. He has been on propofol overnight. Review of Systems Review of Systems: Unobtainable due to reduced consciousness Physical Exam Physical Exam: Constitutional: Patient appears to be of their stated age. Patient is in no apparent distress. Patient is well-developed. Eyes: Pupils are equal round and reactive to light. Conjunctivae are normal. Anicteric sclera. Ears nose, mouth and throat: Endotracheal tube in place. Neck: Trachea is midline. Visual inspection is normal. C-collar in place. Respiratory: Clear to auscultation bilaterally. No use of accessory muscles. No significant clubbing noted. Cardiovascular: Regular rate and rhythm. No murmurs. No edema. Gastrointestinal: Normal bowel sounds, soft, nontender and nondistended. No hepatosplenomegaly noted. Musculoskeletal: No cyanosis. Patient is able to move all extremities. Strength is 5 out of 5 in the upper and lower extremities. Skin: No rashes, warm dry and intact. Neurologic: Gag reflex present. Pupillary reflex present. Patient does withdraw to painful stimuli. Opens eyes spontaneously. Psychiatric: Unobtainable. Results & Data Results & Data Vital Signs (Past 12 Hours) Vital Signs Temp Pulse Resp BP Pulse Ox O2 Del Method FiO2 01/25/23 08:30 37.6 C H 50 L 12 100 01/25/23 08:15 129/68 01/25/23 08:15 37.6 C H 49 L 12 100 01/25/23 08:03 133/67 01/25/23 08:03 37.5 C 51 L 12 100 01/25/23 08:00 37.5 C 46 L 12 100 01/25/23 08:00 30 01/25/23 07:45 37.3 C 51 L 14 100 01/25/23 07:45 152/84 H 01/25/23 07:41 48 L 12 100 30 01/25/23 07:30 131/67 01/25/23 07:30 37.2 C 54 L 14 100 01/25/23 07:15 37.1 C 49 L 12 100 01/25/23 07:15 135/72 01/25/23 07:00 37.0 C 45 L 12 100 Mechanical Vent 0.3 01/25/23 07:00 129/68 01/25/23 06:45 138/76 01/25/23 06:45 55 L 12 100 01/25/23 06:00 36.7 C 51 L 12 119/62 100 Mechanical Vent 01/25/23 05:00 36.7 C 49 L 12 123/65 100 Mechanical Vent 01/25/23 04:15 116/62 01/25/23 04:15 48 L 12 100 01/25/23 04:00 36.7 C 51 L 12 115/60 100 Mechanical Vent 01/25/23 04:00 30 01/25/23 03:22 51 L 12 100 30 01/25/23 03:00 36.9 C 77 17 151/77 H 100 Mechanical Vent 01/25/23 02:00 36.9 C 52 L 12 112/57 L 100 01/25/23 01:17 58 L 01/25/23 01:00 37 C 58 L 12 120/54 L 100 Mechanical Vent 01/25/23 00:00 37.6 C H 59 L 13 116/57 L 100 Mechanical Vent 01/25/23 00:00 30 01/24/23 23:17 38.0 C H 59 L 12 107/56 L 99 Mechanical Vent 01/24/23 22:35 62 13 100 30 01/24/23 22:30 38.3 C H 68 15 122/63 100 Mechanical Vent 01/24/23 21:00 38.5 C H 75 17 112/58 L 97 Mechanical Vent Coding Level of Care Code 16970 CRITICAL CARE 1ST 30-74M Diagnoses Hanging, undetermined whether accidentally or purposely inflicted, initial encounter T71.164A Encounter type: initial encounter Anoxic brain injury G93.1 Suicide attempt T14.91XA Fever R50.9 Time Spent (min) 38 (1) Hanging Encounter type: initial encounter Qualified Code(s): T71.164A - Asphyxiation due to hanging, undetermined, initial encounter
--- NOTE | 2023-01-25 10:57 | XCELERA ---
[id number] [id number]
[2023-01-25] MEDS ORDERED: DEXTROSE 50% 50 ML SYRINGE IV ONE (11:48)
[2023-01-25] MEDS: D5W AND NSS 1,000 ML IV SCH (14:11)
[2023-01-25] MEDS ORDERED: CARBOHYDRATES FOR HYPOGLYCEMIA PO PRN (14:30)
[2023-01-25] MEDS ORDERED: GLUCOSE 10 TAB/TUBE PO PRN (14:30)
[2023-01-25] MEDS ORDERED: GLUCOSE 40% GEL 15 GM TUBE PO PRN (14:30)
[2023-01-25] MEDS ORDERED: DEXTROSE 50% 50 ML SYRINGE IV PRN (14:30)
[2023-01-25] MEDS ORDERED: GLUCAGON FOR INJ 1 MG VIAL IM PRN (14:30)
[2023-01-25] MEDS ORDERED: PIPERACILLIN/TAZOBACTAM 4.5 GM in DEXTROSE 5% MINI-B 100 ML IV ONE (14:30)
[2023-01-25 15:03] LABS: Basophils # (auto) 0.01 K/uL (0.00-0.20); Basophils % (auto) 0.2 %; Eosinophils # (auto) 0.01 K/uL (0.00-0.50); Eosinophils % (auto) 0.2 %; Hematocrit (blood only) 33.5 % (42.0-52.0); Hemoglobin 11.5 g/dl (14.0-18.0); Immature Granulocytes # (auto) 0.01 K/uL (0.01-0.20); Immature Granulocytes % (auto) 0.2 %; Lymphocytes # (auto) 0.57 K/uL (1.20-3.40); Lymphocytes % (auto) 11.3 %; Mean Corpuscular Hemoglobin 30.4 pg (25.0-34.0); Mean Corpuscular Hgb Conc 34.3 g/dL (32.0-36.0); Mean Corpuscular Volume 88.6 fL (80.0-100.0); Mean Platelet Volume 9.6 fL (9.4-12.4); Monocytes # (auto) 0.37 K/uL (0.11-0.59); Monocytes % (auto) 7.3 %; Neutrophils # (auto) 4.07 K/uL (1.40-6.50); Neutrophils % (auto) 80.8 %; Platelet Count 158 K/uL (130-400); RDW Coefficient of Variation 11.1 % (11.5-14.5); RDW Standard Deviation 35.8 fL (36.4-46.3); Red Blood Count 3.78 M/uL (4.70-6.10); White Blood Count 5.04 K/ul (4.8-10.8)
[2023-01-25 15:16] LABS: BUN Creatinine Ratio 9.6 (10-20); Calcium 9.3 mg/dl (8.6-10.3); Creatinine Clr Calc Pharmacy 125.7 ml/min; Est GFR (African American) 105.8 ml/min; Est GFR (Non-African American) 91.3 ml/min; Potassium 3.9 mmol/L (3.5-5.1)
--- NOTE | 2023-01-25 15:20 | Cardiology Consultation ---
Date of Consultation January 25, 2023 Assessment & Plan (1) Sinus bradycardia: -suspect this is secondary to his anoxic brain injury. -fortunately, his echocardiogram is normal. -no significant EKG changes. -no further cardiac evaluation necessary at this time. (2) Elevated troponin: -suspect secondary to CPR. -no evidence of coronary ischemia. -no further cardiac evaluation necessary at this time. History of Present Illness Attending Physician: Josue Forde MD History of Present Illness Mr. Greene is a 37-year-old male admitted yesterday with presumed anoxic brain injury after the patient hung himself in his penitentiary cell. He was successfully resuscitated and is now improved neurologically. However, he continues to note a sinus bradycardia, therefore, this consultation was ordered. The patient was in his usual state of health and last seen at 10:40 a.m. yesterday. Approximately 4-5 minutes later, the patient was seen hanging in his penitentiary cell. CPR and resuscitation efforts were undertaken and ROSC was obtained. The patient was transported to the emergency room for further care. On arrival here, the patient was posturing and demonstrated roving eye movements. Review of the medical record notes no evidence of a cardiac diagnosis. Past medical and surgical history 1. Hypertension 2. Depression 3. Nightmare disorder Social history Incarcerated at [facility] Alcohol and smoking history unobtainable Family history Unobtainable Review of systems Unobtainable Allergies Allergy/AdvReac Type Severity Reaction Status Date / Time OC SPRAY CONTRINDICATION AdvReac Unknown Uncoded 01/25/23 08:19 Home Medications Medication Instructions Recorded Confirmed Type Saul Peroxide 5% Lotion 1 applic topical DAILY 01/24/23 01/24/23 History coal tar 2 % shampoo (Tarsum 1 applic topical DAILY 01/24/23 01/24/23 History Professional) diphenhydramine HCl 50 mg capsule 100 mg PO HS 01/24/23 01/24/23 History mirtazapine 45 mg tablet 45 mg PO HS 01/24/23 01/24/23 History prazosin 1 mg capsule 3 mg PO HS 01/24/23 01/24/23 History sertraline 100 mg tablet 100 mg PO HS 01/24/23 01/24/23 History Patient History Medical History (Updated 01/25/23 @ 15:18 by Stephon Fernandes MD) Fever Suicide attempt Nightmare disorder Depression Social History (System 01/25/23 @ 08:19 by Sherie Dela Cruz) Smoking Status: Unknown if ever smoked Preferred Language: Brazilian Communication Ability: Effective Current Living Situation: Other Current Living Situation Comment: [facility] Assistive Devices: None Physical Exam Physical Exam: In general this is a well-developed well-nourished black male in no acute distress. HEENT exam is negative. Neck is supple with full carotid upstrokes. Cardiovascular exam reveals a regular rhythm with distant heart sounds. No obvious murmurs. Lungs are clear without rales, rhonchi or wheezes. Abdomen is soft nontender without bruits. Extremities reveal intact radial artery pulses bilaterally. There is no peripheral edema. Results & Data Vital Signs (Past 12 Hours) Vital Signs Temp Pulse Pulse Resp BP BP Pulse Ox 01/25/23 13:09 53 L 119/67 99 01/25/23 12:15 133/65 01/25/23 12:15 37.6 C H 66 21 94 01/25/23 12:00 129/71 01/25/23 12:00 37.6 C H 61 17 97 01/25/23 11:45 119/65 01/25/23 11:45 37.7 C H 49 L 17 97 01/25/23 11:30 37.7 C H 43 L 11 L 01/25/23 11:30 127/63 01/25/23 11:16 131/68 01/25/23 11:16 37.6 C H 49 L 15 01/25/23 11:00 132/62 01/25/23 11:00 37.6 C H 49 L 17 93 01/25/23 10:45 37.6 C H 51 L 17 96 01/25/23 10:45 129/63 01/25/23 10:16 135/74 01/25/23 10:16 37.6 C H 56 L 15 100 01/25/23 10:00 132/68 01/25/23 10:00 37.7 C H 53 L 17 01/25/23 09:45 132/73 01/25/23 09:45 37.7 C H 50 L 17 01/25/23 09:31 37.7 C H 55 L 14 92 01/25/23 09:31 134/75 01/25/23 09:16 124/61 01/25/23 09:16 37.7 C H 56 L 16 01/25/23 09:00 37.7 C H 59 L 17 100 01/25/23 08:45 37.6 C H 50 L 10 L 100 01/25/23 08:45 149/82 H 01/25/23 08:30 133/72 01/25/23 08:30 37.6 C H 50 L 12 100 01/25/23 08:15 129/68 01/25/23 08:15 37.6 C H 49 L 12 100 01/25/23 08:03 133/67 01/25/23 08:03 37.5 C 51 L 12 100 01/25/23 08:00 37.5 C 46 L 12 100 01/25/23 08:00 01/25/23 07:45 37.3 C 51 L 14 100 01/25/23 07:45 152/84 H 01/25/23 07:45 01/25/23 07:41 48 L 12 100 01/25/23 07:30 131/67 01/25/23 07:30 37.2 C 54 L 14 100 01/25/23 07:15 37.1 C 49 L 12 100 01/25/23 07:15 135/72 01/25/23 07:00 37.0 C 45 L 12 100 01/25/23 07:00 129/68 01/25/23 06:45 138/76 01/25/23 06:45 55 L 12 100 01/25/23 06:00 36.7 C 51 L 12 119/62 100 01/25/23 05:00 36.7 C 49 L 12 123/65 100 01/25/23 04:15 116/62 01/25/23 04:15 48 L 12 100 01/25/23 04:00 36.7 C 51 L 12 115/60 100 01/25/23 04:00 01/25/23 03:22 51 L 12 100 O2 Del Method FiO2 01/25/23 13:09 Room Air 01/25/23 12:15 01/25/23 12:15 01/25/23 12:00 01/25/23 12:00 01/25/23 11:45 01/25/23 11:45 01/25/23 11:30 01/25/23 11:30 01/25/23 11:16 01/25/23 11:16 01/25/23 11:00 01/25/23 11:00 01/25/23 10:45 01/25/23 10:45 01/25/23 10:16 01/25/23 10:16 01/25/23 10:00 01/25/23 10:00 01/25/23 09:45 01/25/23 09:45 01/25/23 09:31 01/25/23 09:31 01/25/23 09:16 01/25/23 09:16 01/25/23 09:00 01/25/23 08:45 01/25/23 08:45 01/25/23 08:30 01/25/23 08:30 01/25/23 08:15 01/25/23 08:15 01/25/23 08:03 01/25/23 08:03 01/25/23 08:00 01/25/23 08:00 30 01/25/23 07:45 01/25/23 07:45 01/25/23 07:45 Mechanical Vent 30 01/25/23 07:41 30 01/25/23 07:30 01/25/23 07:30 01/25/23 07:15 01/25/23 07:15 01/25/23 07:00 Mechanical Vent 0.3 01/25/23 07:00 01/25/23 06:45 01/25/23 06:45 01/25/23 06:00 Mechanical Vent 01/25/23 05:00 Mechanical Vent 01/25/23 04:15 01/25/23 04:15 01/25/23 04:00 Mechanical Vent 01/25/23 04:00 30 01/25/23 03:22 30 Laboratory Results CBC notes hemoglobin 11.2, hematocrit 34.4, white count 5.8, and platelet count [id number]. Electrolytes note a sodium of 138, potassium 3.8, chloride 106, bicarb 26, BUN 13, creatinine 1.08, and glucose of 103. Magnesium level normal 1.9. Initial high sensitivity troponin was 66.8 with follow-up values of 552, 761, 503.8, and 243. Diagnostic Findings Echocardiogram notes normal left ventricular systolic function with ejection fraction 55-60%. There is no valvular pathology. EKG notes sinus rhythm and incomplete right bundle branch block. Chest x-ray notes no acute disease. ETT tube is in proper position. PG Care Time/CCT Total # of Minutes Spent Total Time Spent with Patient: Total time spent is greater than 50% in coordination of care (as documented) at patient's floor/unit and/or counseling patient: Coding Level of Care Code 39365 IN/OBS CONSULT LVL 4,60M Diagnoses Sinus bradycardia R00.1 Elevated troponin R79.89
[2023-01-25 15:52] LABS: Appearance Urine Clear (Clear); Bilirubin Urine Negative (Negative); Blood Urine Negative (Negative); Color Urine Yellow; Glucose Urine UA Negative (Negative); Ketones Urine Negative (Negative); Leukocyte Esterase Urine Negative (Negative); Nitrite Urine Negative (Negative); Protein Urine Negative (Negative); Specific Gravity Urine 1.008 (1.000-1.030); Urobilinogen Urine Negative (Negative)
--- NOTE | 2023-01-25 18:05 | Hospitalist Progress Note ---
Date of Service January 25, 2023 Assessment & Plan (1) Hanging: Plan: The patient is extubated Started on regular diet, mental status is improved (2) Anoxic brain injury: Plan: Consulted by neurology, (3) Depression: Plan: We will consult with psychiatry when she becomes medically stable (4) Nightmare disorder: (5) Suicide attempt: Plan The patient is extubated, consulted by neurology for unexplained injury and by cardiology for bradycardia, Admission and Anticipated Discharge Date Admission Date: January 24, 2023 Subjective The patient extubated Physical Exam Physical Exam: In general this is a well-developed well-nourished black male in no acute distre ss. HEENT exam is negative. Neck is supple with full carotid upstrokes. Cardiovascular exam reveals a regular rhythm with distant heart sounds. No obvious murmurs. Lungs are clear without rales, rhonchi or wheezes. Abdomen is soft nontender without bruits. Extremities reveal intact radial artery pulses bilaterally. There is no peripheral edema. Results & Data Results & Data Vital Signs (Past 12 Hours) Vital Signs Temp Pulse Pulse Resp BP BP Pulse Ox 01/25/23 13:09 53 L 119/67 99 01/25/23 12:15 133/65 01/25/23 12:15 37.6 C H 66 21 94 01/25/23 12:00 129/71 01/25/23 12:00 37.6 C H 61 17 97 01/25/23 11:45 119/65 01/25/23 11:45 37.7 C H 49 L 17 97 01/25/23 11:30 37.7 C H 43 L 11 L 01/25/23 11:30 127/63 01/25/23 11:16 131/68 01/25/23 11:16 37.6 C H 49 L 15 01/25/23 11:00 132/62 01/25/23 11:00 37.6 C H 49 L 17 93 01/25/23 10:45 37.6 C H 51 L 17 96 01/25/23 10:45 129/63 01/25/23 10:16 135/74 01/25/23 10:16 37.6 C H 56 L 15 100 01/25/23 10:00 132/68 01/25/23 10:00 37.7 C H 53 L 17 01/25/23 09:45 132/73 01/25/23 09:45 37.7 C H 50 L 17 01/25/23 09:31 37.7 C H 55 L 14 92 01/25/23 09:31 134/75 01/25/23 09:16 124/61 01/25/23 09:16 37.7 C H 56 L 16 01/25/23 09:00 37.7 C H 59 L 17 100 01/25/23 08:45 37.6 C H 50 L 10 L 100 01/25/23 08:45 149/82 H 01/25/23 08:30 133/72 01/25/23 08:30 37.6 C H 50 L 12 100 01/25/23 08:15 129/68 01/25/23 08:15 37.6 C H 49 L 12 100 01/25/23 08:03 133/67 01/25/23 08:03 37.5 C 51 L 12 100 01/25/23 08:00 37.5 C 46 L 12 100 01/25/23 08:00 01/25/23 07:45 37.3 C 51 L 14 100 01/25/23 07:45 152/84 H 01/25/23 07:45 01/25/23 07:41 48 L 12 100 01/25/23 07:30 131/67 01/25/23 07:30 37.2 C 54 L 14 100 01/25/23 07:15 37.1 C 49 L 12 100 01/25/23 07:15 135/72 01/25/23 07:00 37.0 C 45 L 12 100 01/25/23 07:00 129/68 01/25/23 06:45 138/76 01/25/23 06:45 55 L 12 100 O2 Del Method FiO2 01/25/23 13:09 Room Air 01/25/23 12:15 01/25/23 12:15 01/25/23 12:00 01/25/23 12:00 01/25/23 11:45 01/25/23 11:45 01/25/23 11:30 01/25/23 11:30 01/25/23 11:16 01/25/23 11:16 01/25/23 11:00 01/25/23 11:00 01/25/23 10:45 01/25/23 10:45 01/25/23 10:16 01/25/23 10:16 01/25/23 10:00 01/25/23 10:00 01/25/23 09:45 01/25/23 09:45 01/25/23 09:31 01/25/23 09:31 01/25/23 09:16 01/25/23 09:16 01/25/23 09:00 01/25/23 08:45 01/25/23 08:45 01/25/23 08:30 01/25/23 08:30 01/25/23 08:15 01/25/23 08:15 01/25/23 08:03 01/25/23 08:03 01/25/23 08:00 01/25/23 08:00 30 01/25/23 07:45 01/25/23 07:45 01/25/23 07:45 Mechanical Vent 30 01/25/23 07:41 30 01/25/23 07:30 01/25/23 07:30 01/25/23 07:15 01/25/23 07:15 01/25/23 07:00 Mechanical Vent 0.3 01/25/23 07:00 01/25/23 06:45 01/25/23 06:45 PG Care Time/CCT Total # of Minutes Spent Total Time Spent with Patient: Total time spent is greater than 50% in coordination of care (as documented) at patient's floor/unit and/or counseling patient: Coding Level of Care Code 51726 SUB INP/OBS CARE 2/35MIN Diagnoses Hanging, undetermined whether accidentally or purposely inflicted, initial encounter T71.164A Encounter type: initial encounter Anoxic brain injury G93.1 Depression F32.A Depression Type: major depressive disorder Active/Remission status: currently active Nightmare disorder F51.5 Suicide attempt T14.91XA (1) Hanging Encounter type: initial encounter Qualified Code(s): T71.164A - Asphyxiation due to hanging, undetermined, initial encounter (3) Depression Depression Type: major depressive disorder Active/Remission status: currently active
[2023-01-25] MEDS: PIPERACILLIN/TAZOBACTAM 4.5 GM in DEXTROSE 5% MINI-B 100 ML IV SCH (19:57)
[2023-01-26] MEDS: D5W AND NSS 1,000 ML IV SCH (01:37)
[2023-01-26] MEDS: PIPERACILLIN/TAZOBACTAM 4.5 GM in DEXTROSE 5% MINI-B 100 ML IV SCH (02:53)
[2023-01-26 04:48] LABS: Basophils # (auto) 0.01 K/uL (0.00-0.20); Basophils % (auto) 0.2 %; Eosinophils # (auto) 0.03 K/uL (0.00-0.50); Eosinophils % (auto) 0.7 %; Hematocrit (blood only) 31.9 % (42.0-52.0); Hemoglobin 10.7 g/dl (14.0-18.0); Lymphocytes % (auto) 20.3 %; Mean Corpuscular Hgb Conc 33.5 g/dL (32.0-36.0); Mean Corpuscular Volume 89.4 fL (80.0-100.0); Mean Platelet Volume 10.3 fL (9.4-12.4); Monocytes # (auto) 0.33 K/uL (0.11-0.59); Monocytes % (auto) 7.4 %; Neutrophils # (auto) 3.17 K/uL (1.40-6.50); Neutrophils % (auto) 71.4 %; Platelet Count 155 K/uL (130-400); Red Blood Count 3.57 M/uL (4.70-6.10); White Blood Count 4.44 K/ul (4.8-10.8)
--- NOTE | 2023-01-26 04:53 | Psychiatric Consultation ---
Date of Consultation January 26, 2023 Impression / Recommendations Impression 37 yo male with a history of depression and nightmares, s/p hanging attempt with early concerns for anoxic brain injury--improving significantly (1) Suicide attempt: (2) Depression: Active/Remission status: currently active Depression Type: major depressive disorder (3) Anoxic brain injury: Plan no acute agitation or psychosis Would hold psych meds (Zoloft, prazosin, Remeron) until reassessed by group home psychiatry unless his stay becomes prolonged and sleep issues/dreams resume then would add back Remeron and/or prazosin first. 1-on-1 via guards while on med floor patient cannot be admitted to an inpatient psychiatry unit due to his incarceration and should return to group home on suicide watch/protocols when medically cleared CPT Code Overall, I spent a total of 56 minutes with this case, including review of chart, direct evaluation of the patient, coordination with nursing,coordination of care with hospitalist service, and documentation. Psych History Identifying Data 37 yo male [facility] inmate brought to ED 01/24/23 after being found hanging in cell and resuscitated. Chief Complaint suicide attempt History of Present Illness Patient was seen by neurology while intubated, extubated yesterday pm. Limited historian at this time. Initially only oriented to self, now self and place. He initially had no memory of attempt. Has been taking antidepressants for some time and history of sleep disturbance. Patients condition has been explained to him by guards/staff multiple times yesterday and encephalopathy appears to be resolving. Denied SI to liaison last pm. Today he states he wants to be back in his cell bed. He denied prior attempts but may not be a reliable historian and given limited interventions that can be provided in ICU did not obtain additional history as calm and in NAD. He denied sleep problems [facility] at the [facility]. Allergies Allergy/AdvReac Type Severity Reaction Status Date / Time OC SPRAY CONTRINDICATION AdvReac Unknown Uncoded 01/25/23 08:19 Home Medications Medication Instructions Recorded Confirmed Type Saul Peroxide 5% Lotion 1 applic topical DAILY 01/24/23 01/24/23 History coal tar 2 % shampoo (Tarsum 1 applic topical DAILY 01/24/23 01/24/23 History Professional) diphenhydramine HCl 50 mg capsule 100 mg PO HS 01/24/23 01/24/23 History mirtazapine 45 mg tablet 45 mg PO HS 01/24/23 01/24/23 History prazosin 1 mg capsule 3 mg PO HS 01/24/23 01/24/23 History sertraline 100 mg tablet 100 mg PO HS 01/24/23 01/24/23 History Patient History Medical History Fever Suicide attempt Nightmare disorder Depression Social History (System 01/25/23 @ 08:19 by Sherie Dela Cruz) Smoking Status: Unknown if ever smoked Preferred Language: [place] Islander Communication Ability: Effective Current Living Situation: Other Current Living Situation Comment: [facility] Assistive Devices: None Physical Exam Psychiatric: Orientation: alert Eye Contact: + fair eye contact Speech: normal rate/rhythm/volume of speech Affect: euthymic affect Mood: no depressed mood Thought Process: + concrete thought process Thought Content: no delusions Suicidal Thoughts: denies suicidal thoughts Homicidal Thoughts: denies homicidal thoughts Hallucinations: no auditory hallucinations and no visual hallucinations Cognition: language grossly intact Insight: + poor insight Vital Signs (Past 24 Hours): Last Vital Signs Temp 36.7 C 01/26/23 03:01 Pulse 46 L 01/26/23 03:01 Resp 15 01/26/23 03:01 BP 135/72 01/26/23 03:01 Pulse Ox 98 01/26/23 03:01 O2 Del Method Room Air 01/26/23 03:01 FiO2 30 01/25/23 08:00 Review of Systems All systems reviewed & are unremarkable except as noted in HPI & below Results & Data (PSY) Laboratory Results 01/26/23 01/25/23 01/25/23 Range/Units 04:16 20:16 17:19 WBC 4.44 L (4.8-10.8) K/ul RBC 3.57 L (4.70-6.10) M/uL Hgb 10.7 L (14.0-18.0) g/dl POC Hgb (14.0-18.0) g/dl Hct 31.9 L (42.0-52.0) % POC Hct (42-52) % MCV 89.4 (80.0-100.0) fL MCH 30.0 (25.0-34.0) pg MCHC 33.5 (32.0-36.0) g/dL RDW Std Deviation 36.0 L (36.4-46.3) fL RDW Coeff of Meliza 11.0 L (11.5-14.5) % Plt Count 155 (130-400) K/uL MPV 10.3 (9.4-12.4) fL Immature Gran % (Auto) 0.0 % Neut % (Auto) 71.4 % Lymph % (Auto) 20.3 % [place] % (Auto) 7.4 % Eos % (Auto) 0.7 % Baso % (Auto) 0.2 % Neut # (Auto) 3.17 (1.40-6.50) K/uL Lymph # (Auto) 0.90 L (1.20-3.40) K/uL [place] # (Auto) 0.33 (0.11-0.59) K/uL Eos # (Auto) 0.03 (0.00-0.50) K/uL Baso # (Auto) 0.01 (0.00-0.20) K/uL Immature Gran # (Auto) 0.00 L (0.01-0.20) K/uL Sample Site POC pH (7.35-7.45) POC pCO2 (35-46) mmHg POC pO2 (80-95) mmHg POC HCO3 (19-24) carrington/L POC Total CO2 (24-31) mmol/L POC Base Excess (-9-1.8) carrington/L ABG pH (Temp Correct) (7.35-7.45) ABG pCO2 (Temp Corrct (35-46) mmHg POC ABG pO2 at Pt Temp POC ABG O2 Sat (90-95) % Saúl Test O2 Delivery Device POC O2 Rate POC FiO2 % Tidal Volume PEEP POC Sodium (135-144) mmol/L Sodium Pending (136-145) mmol/L POC Potassium (3.3-5.0) mmol/L Potassium Pending (3.5-5.1) mmol/L Chloride Pending (98-107) mmol/L Carbon Dioxide Pending (21-32) mmol/L Anion Gap Pending (3-11) BUN Pending (6-23) mg/dl Creatinine Pending (0.6-1.4) mg/dl Est Cr Clr Drug Dosing Pending ml/min Est GFR ( Amer) Pending ml/min Est GFR (Non-Af Amer) Pending ml/min BUN/Creatinine Ratio Pending (10-20) Glucose Pending (70-99(Fasting)) mg/dl POC Glucose 91 110 H (70-99) mg/dl Calcium Pending (8.6-10.3) mg/dl Phosphorus Pending (2.5-4.9) mg/dl Magnesium Pending (1.7-2.4) mg/dl Troponin I High Sens (0-20) pg/ml Procalcitonin (0-0.5) ng/ml Urine Color Urine Appearance (Clear) Urine pH (4.5-7.5) Ur Specific [place] (1.000-1.030) Urine Protein (Negative) Urine Glucose (UA) (Negative) Urine Ketones (Negative) Urine Blood (Negative) Urine Nitrite (Negative) Urine Bilirubin (Negative) Urine Urobilinogen (Negative) Ur Leukocyte Esterase (Negative) 01/25/23 01/25/23 01/25/23 Range/Units 15:45 14:38 12:23 WBC 5.04 (4.8-10.8) K/ul RBC 3.78 L (4.70-6.10) M/uL Hgb 11.5 L (14.0-18.0) g/dl POC Hgb (14.0-18.0) g/dl Hct 33.5 L (42.0-52.0) % POC Hct (42-52) % MCV 88.6 (80.0-100.0) fL MCH 30.4 (25.0-34.0) pg MCHC 34.3 (32.0-36.0) g/dL RDW Std Deviation 35.8 L (36.4-46.3) fL RDW Coeff of Meliza 11.1 L (11.5-14.5) % Plt Count 158 (130-400) K/uL MPV 9.6 (9.4-12.4) fL Immature Gran % (Auto) 0.2 % Neut % (Auto) 80.8 % Lymph % (Auto) 11.3 % [place] % (Auto) 7.3 % Eos % (Auto) 0.2 % Baso % (Auto) 0.2 % Neut # (Auto) 4.07 (1.40-6.50) K/uL Lymph # (Auto) 0.57 L (1.20-3.40) K/uL [place] # (Auto) 0.37 (0.11-0.59) K/uL Eos # (Auto) 0.01 (0.00-0.50) K/uL Baso # (Auto) 0.01 (0.00-0.20) K/uL Immature Gran # (Auto) 0.01 (0.01-0.20) K/uL Sample Site POC pH (7.35-7.45) POC pCO2 (35-46) mmHg POC pO2 (80-95) mmHg POC HCO3 (19-24) carrington/L POC Total CO2 (24-31) mmol/L POC Base Excess (-9-1.8) carrington/L ABG pH (Temp Correct) (7.35-7.45) ABG pCO2 (Temp Corrct (35-46) mmHg POC ABG pO2 at Pt Temp POC ABG O2 Sat (90-95) % Saúl Test O2 Delivery Device POC O2 Rate POC FiO2 % Tidal Volume PEEP POC Sodium (135-144) mmol/L Sodium 142 (136-145) mmol/L POC Potassium (3.3-5.0) mmol/L Potassium 3.9 (3.5-5.1) mmol/L Chloride 110 H (98-107) mmol/L Carbon Dioxide 28 (21-32) mmol/L Anion Gap 4 (3-11) BUN 10 (6-23) mg/dl Creatinine 1.04 (0.6-1.4) mg/dl Est Cr Clr Drug Dosing 125.7 ml/min Est GFR ( Amer) 105.8 ml/min Est GFR (Non-Af Amer) 91.3 ml/min BUN/Creatinine Ratio 9.6 L (10-20) Glucose 97 (70-99(Fasting)) mg/dl POC Glucose 103 H (70-99) mg/dl Calcium 9.3 (8.6-10.3) mg/dl Phosphorus (2.5-4.9) mg/dl Magnesium 2.0 (1.7-2.4) mg/dl Troponin I High Sens (0-20) pg/ml Procalcitonin (0-0.5) ng/ml Urine Color Yellow Urine Appearance Clear (Clear) Urine pH 6.0 (4.5-7.5) Ur Specific [place] 1.008 (1.000-1.030) Urine Protein Negative (Negative) Urine Glucose (UA) Negative (Negative) Urine Ketones Negative (Negative) Urine Blood Negative (Negative) Urine Nitrite Negative (Negative) Urine Bilirubin Negative (Negative) Urine Urobilinogen Negative (Negative) Ur Leukocyte Esterase Negative (Negative) 01/25/23 01/25/23 01/25/23 Range/Units 11:45 11:45 09:01 WBC (4.8-10.8) K/ul RBC (4.70-6.10) M/uL Hgb (14.0-18.0) g/dl POC Hgb (14.0-18.0) g/dl Hct (42.0-52.0) % POC Hct (42-52) % MCV (80.0-100.0) fL MCH (25.0-34.0) pg MCHC (32.0-36.0) g/dL RDW Std Deviation (36.4-46.3) fL RDW Coeff of Meliza (11.5-14.5) % Plt Count (130-400) K/uL MPV (9.4-12.4) fL Immature Gran % (Auto) % Neut % (Auto) % Lymph % (Auto) % [place] % (Auto) % Eos % (Auto) % Baso % (Auto) % Neut # (Auto) (1.40-6.50) K/uL Lymph # (Auto) (1.20-3.40) K/uL [place] # (Auto) (0.11-0.59) K/uL Eos # (Auto) (0.00-0.50) K/uL Baso # (Auto) (0.00-0.20) K/uL Immature Gran # (Auto) (0.01-0.20) K/uL Sample Site POC pH (7.35-7.45) POC pCO2 (35-46) mmHg POC pO2 (80-95) mmHg POC HCO3 (19-24) carrington/L POC Total CO2 (24-31) mmol/L POC Base Excess (-9-1.8) carrington/L ABG pH (Temp Correct) (7.35-7.45) ABG pCO2 (Temp Corrct (35-46) mmHg POC ABG pO2 at Pt Temp POC ABG O2 Sat (90-95) % Saúl Test O2 Delivery Device POC O2 Rate POC FiO2 % Tidal Volume PEEP POC Sodium (135-144) mmol/L Sodium (136-145) mmol/L POC Potassium (3.3-5.0) mmol/L Potassium (3.5-5.1) mmol/L Chloride (98-107) mmol/L Carbon Dioxide (21-32) mmol/L Anion Gap (3-11) BUN (6-23) mg/dl Creatinine (0.6-1.4) mg/dl Est Cr Clr Drug Dosing ml/min Est GFR ( Amer) ml/min Est GFR (Non-Af Amer) ml/min BUN/Creatinine Ratio (10-20) Glucose (70-99(Fasting)) mg/dl POC Glucose 65 L* 57 L* (70-99) mg/dl Calcium (8.6-10.3) mg/dl Phosphorus (2.5-4.9) mg/dl Magnesium (1.7-2.4) mg/dl Troponin I High Sens (0-20) pg/ml Procalcitonin 0.05 (0-0.5) ng/ml Urine Color Urine Appearance (Clear) Urine pH (4.5-7.5) Ur Specific [place] (1.000-1.030) Urine Protein (Negative) Urine Glucose (UA) (Negative) Urine Ketones (Negative) Urine Blood (Negative) Urine Nitrite (Negative) Urine Bilirubin (Negative) Urine Urobilinogen (Negative) Ur Leukocyte Esterase (Negative) 01/25/23 01/25/23 Range/Units 04:56 04:48 WBC 5.81 (4.8-10.8) K/ul RBC 3.80 L (4.70-6.10) M/uL Hgb 11.2 L (14.0-18.0) g/dl POC Hgb 10.9 L (14.0-18.0) g/dl Hct 34.4 L (42.0-52.0) % POC Hct 32 L (42-52) % MCV 90.5 (80.0-100.0) fL MCH 29.5 (25.0-34.0) pg MCHC 32.6 (32.0-36.0) g/dL RDW Std Deviation 36.6 (36.4-46.3) fL RDW Coeff of Meliaz 10.9 L (11.5-14.5) % Plt Count 141 (130-400) K/uL MPV 10.2 (9.4-12.4) fL Immature Gran % (Auto) 0.2 % Neut % (Auto) 73.4 % Lymph % (Auto) 15.1 % [place] % (Auto) 10.8 % Eos % (Auto) 0.3 % Baso % (Auto) 0.2 % Neut # (Auto) 4.26 (1.40-6.50) K/uL Lymph # (Auto) 0.88 L (1.20-3.40) K/uL [place] # (Auto) 0.63 H (0.11-0.59) K/uL Eos # (Auto) 0.02 (0.00-0.50) K/uL Baso # (Auto) 0.01 (0.00-0.20) K/uL Immature Gran # (Auto) 0.01 (0.01-0.20) K/uL Sample Site R Radial POC pH 7.44 (7.35-7.45) POC pCO2 40 (35-46) mmHg POC pO2 133 H (80-95) mmHg POC HCO3 27 H (19-24) carrington/L POC Total CO2 28 (24-31) mmol/L POC Base Excess 3.0 H (-9-1.8) carrington/L ABG pH (Temp Correct) 7.442 (7.35-7.45) ABG pCO2 (Temp Corrct 39 (35-46) mmHg POC ABG pO2 at Pt Temp 131 POC ABG O2 Sat 99.0 H (90-95) % Saúl Test Pass O2 Delivery Device Ventilator POC O2 Rate 12 POC FiO2 30 % Tidal Volume 550 PEEP 5 POC Sodium 139 (135-144) mmol/L Sodium 138 (136-145) mmol/L POC Potassium 3.7 (3.3-5.0) mmol/L Potassium 3.8 (3.5-5.1) mmol/L Chloride 106 (98-107) mmol/L Carbon Dioxide 26 (21-32) mmol/L Anion Gap 6 (3-11) BUN 13 (6-23) mg/dl Creatinine 1.08 (0.6-1.4) mg/dl Est Cr Clr Drug Dosing 121.1 ml/min Est GFR ( Amer) 101.1 ml/min Est GFR (Non-Af Amer) 87.2 ml/min BUN/Creatinine Ratio 12.0 (10-20) Glucose 94 (70-99(Fasting)) mg/dl POC Glucose (70-99) mg/dl Calcium 9.3 (8.6-10.3) mg/dl Phosphorus 3.8 (2.5-4.9) mg/dl Magnesium 1.9 (1.7-2.4) mg/dl Troponin I High Sens 243.0 H* D (0-20) pg/ml Procalcitonin (0-0.5) ng/ml Urine Color Urine Appearance (Clear) Urine pH (4.5-7.5) Ur Specific [place] (1.000-1.030) Urine Protein (Negative) Urine Glucose (UA) (Negative) Urine Ketones (Negative) Urine Blood (Negative) Urine Nitrite (Negative) Urine Bilirubin (Negative) Urine Urobilinogen (Negative) Ur Leukocyte Esterase (Negative) Medications Administered Acetaminophen (Ofirmev) 1,000 mg in 100 mls @ 400 mls/hr IV Q8H PRN PRN Reason: Fever Stop: 01/28/23 08:42 Last Infusion: 01/25/23 19:55 Dose: Infused Documented By: Admin: 01/25/23 17:01 Dose: 400 mls/hr Documented By: LULA Dextrose/Sodium Chloride (D5w And Nss) 1,000 mls @ 80 mls/hr IV .[id number] [facility] Stop: 02/24/23 14:14 Last Admin: 01/26/23 01:37 Dose: 80 mls/hr Documented By: Infusion: 01/26/23 01:37 Dose: Infused Documented By: Admin: 01/25/23 14:11 Dose: 80 mls/hr Documented By: LULA Piperacillin Sod/Tazobactam (Sod 4.5 gm/ Dextrose) 100 mls @ 25 mls/hr IV Q8H [facility]; Protocol Stop: 02/01/23 18:59 Last Admin: 01/26/23 02:53 Dose: 25 mls/hr Documented By: Infusion: 01/26/23 00:11 Dose: Infused Documented By: Admin: 01/25/23 19:57 Dose: 25 mls/hr Documented By: MADHAVI Miscellaneous ([facility]cu Protocol For Hyperglycemia) 1 each N/A ACHS CAROLYN Stop: 01/26/23 16:29 Last Admin: 01/25/23 20:20 Dose: 1 each Documented By: Admin: 01/25/23 17:06 Dose: Not Given Documented By: Admin: 01/25/23 11:59 Dose: Not Given Documented By: Admin: 01/25/23 07:28 Dose: Not Given Documented By: Admin: 01/24/23 22:36 Dose: 1 each Documented By: Admin: 01/24/23 17:38 Dose: 1 each Documented By: BANDAR Coding Level of Care Code 67455 [facility] Intl Hosp Care Lvl 2 Diagnoses Suicide attempt T14.91XA Depression F32.A Active/Remission status: currently active Depression Type: major depressive disorder Anoxic brain injury G93.1
[2023-01-26 05:04] LABS: BUN Creatinine Ratio 11.3 (10-20); Creatinine Clr Calc Pharmacy 113.7 ml/min; Est GFR (African American) 93.7 ml/min; Est GFR (Non-African American) 80.8 ml/min; Magnesium 1.8 mg/dl (1.7-2.4); Phosphorus 2.9 mg/dl (2.5-4.9); Potassium 3.9 mmol/L (3.5-5.1)
[2023-01-26] MEDS: ICU Protocol for HYPERglycemia SCH (07:48)
--- NOTE | 2023-01-26 08:31 | Neurology Progress Note ---
Date of Service January 26, 2023 Assessment & Plan (1) Hanging: (2) Anoxic brain injury: (3) Depression: (4) Respiratory arrest: (5) Cardiac arrest: Plan This patient had a global anoxic brain injury from hanging attempt January 24. He had global hypoxia and ischemia for likely several minutes (maximum is difficult to ascertain but maybe 7-10 minutes). He had a cardiopulmonary arrest as a result of this but was resuscitated. Currently he is doing remarkably well no obvious encephalopathy, focal neurologic findings, or myelopathy. His neurologic examination seems quite normal to me and he has no neck pain. Basic mental status is reasonable but I did not test him for any subtle deficits he might have in cognition post hanging attempt. The bifrontal/bioccipital headache is likely left over from his anoxia and medical care the last [address] scan of the cervical spine and MRI of the brain were unremarkable for any acute abnormalities. Recommendations: 1. I see no indication for any further neurologic testing or treatment at this time. 2. If he continues to have any cognitive issues that do not resolve over the next several months, formal neuropsychological testing would be warranted 3. Follow-up with retirement Psychiatry, as per Dr. Costello's note Overall, I spent a total of 50 minutes with this case including review of records, direct evaluation the patient at bedside, report generation, and discussion of the case with the patient and RN at bedside as well as Dr. Forde and Dr. Epperson, including differential diagnosis and treatment options Admission and Anticipated Discharge Date Admission Date: January 24, 2023 Subjective Patient notes that his throat is sore and has a mild pounding bifrontal and bioccipital headache this morning. He denies any pain in his neck and he has no weakness in his limbs. He does have a little bit of numbness in his toes bilaterally Nursing reports no new events or seizures. He has been cooperative and pleasant. Psychiatry evaluated the patient this morning and felt that he should just be on his medication and follow-up with retirement Psychiatry. Cardiology evaluation revealed no significant cardiac issues and the troponin elevation was likely due to CPR Blood pressure is 135/72 and pulse is in the 40s. CBC shows some mild anemia but otherwise was unremarkable. Chem profile was unremarkable. Results & Data Vital Signs (Past 12 Hours) Vital Signs Temp Pulse Pulse Resp BP BP Pulse Ox 01/26/23 03:01 36.7 C 46 L 15 135/72 98 01/26/23 02:00 59 L 21 97 01/26/23 01:35 36.7 C 46 L 19 115/59 L 100 01/26/23 00:00 67 15 01/25/23 23:05 37.3 C 45 L 19 133/65 99 01/25/23 23:04 47 L 21 98 01/25/23 23:04 133/65 01/25/23 23:00 48 L 17 01/25/23 22:00 59 L 16 97 01/25/23 21:00 37.6 C H 57 L 20 130/65 97 O2 Del Method 01/26/23 03:01 Room Air 01/26/23 02:00 01/26/23 01:35 Room Air 01/26/23 00:00 01/25/23 23:05 Room Air 01/25/23 23:04 01/25/23 23:04 01/25/23 23:00 01/25/23 22:00 01/25/23 21:00 Exam (Neuro) Physical Exam: The patient is awake, alert, and attentive, with normal speech and communication. Mood is normal and affect is appropriate. The patient is fully oriented and has reasonable memory to conversation Extraocular eye muscles are intact without nystagmus. Facial strength and symmetry is normal bilaterally. Facial sensation is normal bilaterally in all 3 divisions of the fifth cranial nerve. Tongue is midline with normal strength bilaterally. Neck is supple without tenderness Gait and Stance were not tested Coordination of the arms is normal, without tremor or ataxia bilaterally. Motor strength is 5/5 in all major muscle groups of the arms and legs bilaterally, both proximally and distally. Muscle tone is normal in the limbs, without rigidity or spasticity. Reflexes are 2/4 in all 4 limbs both proximally and distally. Sensation exam reveals that he has some slight decreased sensation to pinprick in his feet bilaterally. Toes are downgoing to plantar stimulation bilaterally. PG Care Time/CCT Total # of Minutes Spent Total Time Spent with Patient: Total time spent is greater than 50% in coordination of care (as documented) at patient's floor/unit and/or counseling patient: Coding Level of Care Code 30825 SUB INP/OBS CARE 3/50MIN Diagnoses Hanging, undetermined whether accidentally or purposely inflicted, initial encounter T71.164A Encounter type: initial encounter Anoxic brain injury G93.1 Depression F32.A Depression Type: major depressive disorder Active/Remission status: currently active Respiratory arrest R09.2 Cardiac arrest I46.9 Time Spent (min) 50 (1) Hanging Encounter type: initial encounter Qualified Code(s): T71.164A - Asphyxiation due to hanging, undetermined, initial encounter (3) Depression Depression Type: major depressive disorder Active/Remission status: currently active
--- NOTE | 2023-01-26 10:51 | Cardiology Progress Note ---
Date of Service January 26, 2023 Assessment & Plan (1) Sinus bradycardia: Plan: -etiology not certain, but suspect secondary to his anoxic brain injury. -echocardiogram is normal. -no significant EKG changes. -no further cardiac evaluation necessary at this time. (2) Elevated troponin: Plan: -secondary to CPR. -no evidence of coronary ischemia. -no further cardiac evaluation necessary at this time. Admission and Anticipated Discharge Date Admission Date: January 24, 2023 Subjective The patient is resting comfortably in bed without complaints of chest pain, dyspnea syncope, presyncope. Physical Exam Physical Exam: In general this is a well-developed well-nourished black male in no acute distress. HEENT exam is negative. Neck is supple with full carotid upstrokes. Cardiovascular exam reveals a regular rhythm with distant heart sounds. No obvious murmurs. Lungs are clear without rales, rhonchi or wheezes. Abdomen is soft nontender without bruits. Extremities reveal intact radial artery pulses bilaterally. There is no peripheral edema. Results & Data Vital Signs (Past 12 Hours) Vital Signs Temp Pulse Pulse Resp BP BP Pulse Ox 01/26/23 08:01 46 L 23 113/84 97 01/26/23 08:00 37.2 C 01/26/23 07:01 53 L 14 112/67 97 01/26/23 03:01 36.7 C 46 L 15 135/72 98 01/26/23 02:00 59 L 21 97 01/26/23 01:35 36.7 C 46 L 19 115/59 L 100 01/26/23 00:00 67 15 01/25/23 23:05 37.3 C 45 L 19 133/65 99 01/25/23 23:04 47 L 21 98 01/25/23 23:04 133/65 01/25/23 23:00 48 L 17 O2 Del Method 01/26/23 08:01 Room Air 01/26/23 08:00 01/26/23 07:01 Room Air 01/26/23 03:01 Room Air 01/26/23 02:00 01/26/23 01:35 Room Air 01/26/23 00:00 01/25/23 23:05 Room Air 01/25/23 23:04 01/25/23 23:04 01/25/23 23:00 Diagnostic Findings media monitor notes sinus bradycardia/sinus rhythm varying from 40-65 beats per. PG Care Time/CCT Total # of Minutes Spent Total Time Spent with Patient: Total time spent is greater than 50% in coordination of care (as documented) at patient's floor/unit and/or counseling patient: Coding Level of Care Code 33728 SUB INP/OBS CARE 3/50MIN Diagnoses Sinus bradycardia R00.1 Elevated troponin R79.89
--- NOTE | 2023-01-26 17:49 | Hospitalist Progress Note ---
Date of Service January 26, 2023 Assessment & Plan (1) Hanging: Plan: The patient is extubated Started on regular diet, mental status is improved2 baseline, patient cleared from psychiatry and neurology, patient was downgraded to MedSurg, had episode of bradycardia today heart rate dropped as low as 55 sinus bradycardia, intern retail was informed (2) Depression: Plan: Consult for psychiatric, follow recommendation, (3) Suicide attempt: Plan: Psychiatry recommendations as follows Would hold psych meds (Zoloft, prazosin, Remeron) until reassessed by detention psychiatry unless his stay becomes prolonged and sleep issues/dreams resume then would add back Remeron and/or prazosin first. 1-on-1 via guards while on med floor patient cannot be admitted to an inpatient psychiatry unit due to his incarceration and should return to detention on suicide watch/protocols when medically cleared Plan Patient was downgraded to medical floor, possible discharge tomorrow Admission and Anticipated Discharge Date Admission Date: January 24, 2023 Subjective Had an episode of bradycardia today, Physical Exam Physical Exam: In general this is a well-developed well-nourished black male in no acute distress. HEENT exam is negative. Neck is supple with full carotid upstrokes. Cardiovascular exam reveals a regular rhythm with distant heart sounds. No obvious murmurs. Lungs are clear without rales, rhonchi or wheezes. Abdomen is soft nontender without bruits. Extremities reveal intact radial artery pulses bilaterally. There is no peripheral edema. Results & Data Results & Data Vital Signs (Past 12 Hours) Vital Signs Temp Pulse Pulse Resp BP BP Pulse Ox 01/26/23 17:17 36.8 C 52 L 18 124/70 99 01/26/23 16:00 46 L 01/26/23 11:04 43 L 14 122/64 100 01/26/23 11:03 46 L 01/26/23 08:01 46 L 23 113/84 97 01/26/23 08:00 37.2 C 01/26/23 07:01 53 L 14 112/67 97 O2 Del Method 01/26/23 17:17 Room Air 01/26/23 16:00 01/26/23 11:04 Room Air 01/26/23 11:03 01/26/23 08:01 Room Air 01/26/23 08:00 11/10/23 07:01 Room Air PG Care Time/CCT Total # of Minutes Spent Total Time Spent with Patient: Total time spent is greater than 50% in coordination of care (as documented) at patient's floor/unit and/or counseling patient: Coding Level of Care Code 30686 SUB INP/OBS CARE 2/35MIN Diagnoses Hanging, undetermined whether accidentally or purposely inflicted, initial encounter T71.164A Encounter type: initial encounter Depression F32.A Depression Type: major depressive disorder Active/Remission status: currently active Suicide attempt T14.91XA (1) Hanging Encounter type: initial encounter Qualified Code(s): T71.164A - Asphyxiation due to hanging, undetermined, initial encounter (2) Depression Depression Type: major depressive disorder Active/Remission status: currently active
[2023-01-26] MEDS ORDERED: MELATONIN 3 MG TAB PO PRN (20:55)
[2023-01-26] MEDS ORDERED: ACETAMINOPHEN 500 MG TAB PO PRN (20:55)
[2023-01-27] MEDS ORDERED: OLANZapine 10 MG/2.1 ML SDV IM STA ×2 (03:04→05:35)
--- NOTE | 2023-01-27 09:18 | Discharge Summary ---
Date of Service January 27, 2023 Admission HPI Per Admitting Provider Steven is a 37-year-old male inmate who presented to the emergency department after attempted suicide in the care home by hanging, patient was found hanging in his cell about 5 minutes after his last observed normal. Patient was pulseless on present staff evaluation and underwent CPR. Patient had ROSC prehospital, on arrival to the ER was placed in a rigid cervical collar. Patient is intubated. Patient was bradycardic and hypotensive on ER evaluation. Remains bradycardic and hypotensive at time of hospitalist consultation History limited by ETT. Discussed with SCI nurse on-call at [facility]. Patient does have history of suicidal attempts, however none while at [facility] and additional history regarding these is not available. Has a history of MDD and nightmares for which he is on prazosin/Remeron/Benadryl/sertraline, at last psychiatry follow-up last month denied SI and this was reportedly well controlled. Patient was in level 5 housing, was found after approximately 5 minutes after SI by hanging. Per report was pepper sprayed to assess for malingering, subsequently about to be pulseless. EMS was contacted. AED was applied but did not deliver a shock. Patient with ROSC and bradycardia in route to ER. Subsequently intubated for respiratory protection Additional history is limited by ETT Principal Diagnosis Suicidal attempt by hanging , depression, sinus greg cardia Discharge Exam In general this is a well-developed well-nourished black male in no acute distress. HEENT exam is negative. Neck is supple with full carotid upstrokes. Cardiovascular exam reveals a regular rhythm with distant heart sounds. No obvious murmurs. Lungs are clear without rales, rhonchi or wheezes. Abdomen is soft nontender without bruits. Extremities reveal intact radial artery pulses bilaterally. There is no peripheral edema. Psychiatric Orientation: alert Eye Contact: + fair eye contact Speech: normal rate/rhythm/volume of speech Affect: euthymic affect and + blunted affect Mood: no depressed mood Thought Process: + concrete thought process Thought Content: no delusions Suicidal Thoughts: denies suicidal thoughts Homicidal Thoughts: denies homicidal thoughts Hallucinations: no auditory hallucinations and no visual hallucinations Cognition: language grossly intact Insight: + poor insight Discharge Data Allergies Allergy/AdvReac Type Severity Reaction Status Date / Time OC SPRAY CONTRINDICATION AdvReac Unknown Uncoded 01/25/23 08:19 Consultations 01/24/23 14:24 ED Decision to Admit Stat 01/24/23 16:17 Consult Statistical Machine Servicer Routine 01/24/23 16:38 Consult Behavioral Health Liaison Routine 01/25/23 07:18 Consult Neurology Routine 01/25/23 09:09 Consult Psychiatry Routine 01/25/23 14:06 Consult Cardiology Routine Ordered Studies 01/24/23 12:01 CT angio head w con Stat CT angio neck with con Stat 01/24/23 12:02 CT abd pelvis IV con only Stat CT cervical spine wo con Stat CT chest diagnostic w con Stat CT head/brain wo con Stat 01/24/23 15:45 MRI Brain [MR brain wo con] Routine Hospital Course (1) Hanging: extubated , mental status improved to baseline , cleared by neurology , no evidence of Neck fracture or brain Anoxic injury (2) Sinus bradycardia: consult by cardiology , ECHO WNL , asymptomatic , no need for intervention or follow up as per my d/w Dr Gray and Dr Fernandes note. HR in high 30s and 40s. Stopped Mirtazapine ,Benadryl and Zoloft given can induce bradycardia (3) Depression: with bouts agitation during this admission , seen by psychiatry plan as below (4) Suicide attempt: Psychiatry recommendations as follows Would hold psych meds (Zoloft, prazosin, Remeron) until reassessed by care home psychiatry unless his stay becomes prolonged and sleep issues/dreams resume then would add back Remeron and/or prazosin first. 1-on-1 via guards while on med floor patient cannot be admitted to an inpatient psychiatry unit due to his incarceration and should return to care home on suicide watch/protocols when medically cleared Plan Patient was downgraded to medical floor, possible discharge tomorrow Total Time Total Time Spent Total Time Spent (In Minutes): 45 mintues Discharge Plan Discharge Items Patient Disposition: [facility] Reason For Visit: ANOXIC BRAIN INJURY Discharge Diagnosis: sinus greg cardia , suicidal attempt by hanging ,agitation Condition on Discharge: Good Activity: Resume your previous activity Lifting: Gradually increase as tolerated Bathing: No limitations Non-emergency contact: Primary Care Provider, Petroleum Sampler and Psychiatrist Call non-emergency contact if: you have any medication questions Follow-up/Referrals: Stephon Fernandes MD [Physician] - 02/15/23 (sinus greg cardia ) [facility] - Diet: Regular Addtl Attending Provider Instructions: the patient needs to be on suicidal watch ramos , and be followed closely by care home pyschiatry Pending Studies at Discharge: No Stand-Alone Forms: My [facility] Skilled Items Patient informed of condition?: Yes Discharge Level of Care: Other Communicable Disease: No Discharge Prognosis: Stable Lines: None Urinary Catheter: No Medications and DC Order Prescriptions: New melatonin 3 mg Tablet 3 mg PO HS PRN (Reason: sleep) Qty: 30 0RF Continued prazosin 1 mg Capsule 3 mg PO HS Tarsum Professional 2 % Shampoo 1 applic TOPICAL DAILY Saul Peroxide 5% Lotion 1 applic topical DAILY Discontinued diphenhydramine HCl [Benadryl] 50 mg Capsule 100 mg PO HS sertraline 100 mg Tablet 100 mg PO HS mirtazapine 45 mg Tablet 45 mg PO HS Discharge Orders: Discharge Order (Routine); Ordered 01/27/23 Ordered By: Josue Forde Admission Data Admit Date/Time: 01/24/23 14:53 Attending Provider: Josue Forde Admit Provider: Trever Danielle Primary Care Provider: Neris PAYTON Other Providers: Trever Danielle; Candido Epperson; Mega Colindres; Ayala Granados; Bere Costello; Carlito Rebollar; Fred Cedillo; Tommy Kuhn; Stephon Fernandes; Ryan Lewis; Hank Gray; Blayne Fernandez Jr; Hammad Moore; Mary Alice Ospina; Jeanette Crooks; Akhil Chavez; Akhil Sewell; Robert Felix; Jazmyne Montanez; Naomi Donis; Jef Campos; Froylan Avina; Ryan Reynoso V.; Rodrigue Osborne Coding Level of Care Code 81041 INP/OBS DISCH >30 MIN Diagnoses Hanging, undetermined whether accidentally or purposely inflicted, initial encounter T71.164A Encounter type: initial encounter Sinus bradycardia R00.1 Depression F32.A Depression Type: major depressive disorder Active/Remission status: currently active Suicide attempt T14.91XA
--- NOTE | 2023-01-27 10:30 | Communication Note ---
Date of Service: January 27, 2023 Concerns raised by nursing this morning due to severe sinus bradycardia with heart rates in the mid 30s. Patient relatively asymptomatic and denies any chest pain, shortness of breath or dizziness. Apparently he was extremely agitated last night and received a total 7-1/2 mg of Zyprexa. He was also tased by the correctional officers. On requesting the EKG to be completed now to evaluate his QTc and for any other signs of dysrhythmia especially in light of the overnight events. We will alert the attending hospitalist as well. Coding Level of Care Code None
--- NOTE | 2023-01-27 10:41 | Communication Note ---
Date of Service: January 27, 2023 EKG obtained. Heart rate 38. QRS 106 and QTc interval 468 ms. I discussed with with the on-call chief librarian branch (Dr. Gray) who did not feel the patient required any further work-up at this time as he is asymptomatic and perfusing well. I agree with the assessment and plan and appreciate his input. Patient appears stable for discharge. Coding Level of Care Code None
--- NOTE | 2023-01-28 19:59 | Electrocardiogram Report ---
Test Reason : Blood Pressure : / mmHG Vent. Rate : 038 BPM Atrial Rate : 038 BPM P-R Int : 172 ms QRS Dur : 106 ms QT Int : 468 ms P-R-T Axes : 054 074 070 degrees QTc Int : 372 ms Marked sinus bradycardia Abnormal ECG No previous ECGs available Confirmed by Hank Gray ([id number]) on 01/28/2023 7:59:22 PM Referred By: [facility] SCI Confirmed By:Hank Gray
--- NOTE | 2023-02-28 13:50 | Coding Query ---
CODING QUERY To promote full compliance with coding requirements relating to patient care, provider participation is requested in all cases of waste machine offbearer uncertainty. Please assist us with the question(s) below: Coding Question(s): Please clarify if intubation was completed by you. Please see nursing notes below: 1207: Patient noted to have bitten into the left side of his tongue and lower mid lip. Patient intubated by Dr. Vincent via GlideScope, vocal cords visualized. C-spine maintained by this nurse. Intubation successful. Tube size 8. Balloon inflated and tube 28 cm at the lip. Color change device, used by respiratory to verify placement and auscultation of lungs by JANETT Calhoun bilaterally used to verify placement. Placement verified and tube patent. Physician's Response(s): Thank you Nisreen Reyes Principal Diagnosis: "that condition established after study, to be chiefly responsible for occasioning the admission of the patient to the hospital for care." Co-Existing Principal Diagnosis: "when two or more diagnoses equally meet the criteria for principal diagnosis as determined by the circumstances of admission, diagnostic work up, and/or therapy provided, and the Alphabetic Index, Tabular List, or another coding guideline does not provide sequencing direction, any one of the diagnoses may be sequenced first." "When the physician has documented what appears to be a current diagnosis in the body of the record, but has not included the diagnosis in the final diagnostic statement, the physician should be asked whether the diagnosis should be added." (Source Coding [facility] 2 QTR90. p3-4) PRASHANTH
== END 2023-01-27 12:00 | DRG 922 ==
LOC: ED 11:58 → SUATTDRO 14:53 → MERGE 14:53 → 1E 14:53